=== PATIENT | female | born 1960 | race Caucasian/White ===

== ENCOUNTER 2018-10-25 19:14 | Emergency (ER) | payer MEDICARE, OTHER ==
[~2018-10-25] VITALS: Ht 160 cm; Wt 93.4 kg
[2018-10-25] MEDS ORDERED: TETANUS,DIPTH,PERTUSS P/F (BOOSTRIX) 0.5 ML VIAL IM ONE (19:45)
--- NOTE | 2018-10-25 19:46 | ED General ---
General Chief Complaint: Laceration Stated Complaint: LT THUMB LAC Source of Information: Patient Exam Limitations: No Limitations History of Present Illness Date Seen by Provider: Oct 25, 2018 Time Seen by Provider: 19:16 Initial Comments This 57 year old woman presents to the emergency room with an avulsion of her left thumb while using a kitchen slicer. She is on Plavix and has had persistent bleeding of the wound. She is past due for her tetanus immunization. Injury happened shortly before arrival. Allergies and Home Medications Allergies Coded Allergies: meloxicam (Verified Allergy, Unknown, 10/25/18) vancomycin (Verified Allergy, Unknown, 10/25/18) Patient Home Medication List Home Medication List Reviewed: Yes Review of Systems Review of Systems Constitutional: no symptoms reported EENTM: no symptoms reported Respiratory: no symptoms reported Cardiovascular: no symptoms reported Gastrointestinal: no symptoms reported Genitourinary: no symptoms reported : No Musculoskeletal: no symptoms reported Skin: see HPI Psychiatric/Neurological: No Symptoms Reported Hematologic/Lymphatic: No Symptoms Reported Past Kurnaei-Lhazpi-Pisxud Hx Past Med/Social Hx: Reviewed and Corrections made Patient Social History Recent Foreign Travel: No Contact w/Someone Who Travel: No Past Medical History Surgeries: Yes Abdominal (gastric bypass), Section, Coronary Stent, Hysterectomy, Orthopedic (back), Thyroidectomy Respiratory: No Cardiac: Yes Coronary Artery Disease Neurological: No : No Reproductive Disorders: No Genitourinary: No Gastrointestinal: No Musculoskeletal: Yes Chronic Back Pain Endocrine: No HEENT: No Cancer: No Psychosocial: No Integumentary: No Physical Exam Vital Signs Vital Signs - First Documented 10/25/18 19:20 Temp 97.3 Pulse 87 Resp 18 B/P (MAP) 179/82 (114) Pulse Ox 96 O2 Delivery Room Air Capillary Refill : Height, Weight, BMI Height: '" Weight: lbs. oz. kg; BMI Method: General Appearance: No Apparent Distress, WD/WN HEENT: Normal ENT Inspection Respiratory: Lungs Clear, Normal Breath Sounds, No Accessory Muscle Use Cardiovascular: Regular Rate, Rhythm, No Edema, No Murmur Gastrointestinal: Non Tender, Soft Extremity: Normal Capillary Refill, Other (1 cm skin avulsion on the distal left thumb with oozing of blood) Neurologic/Psychiatric: Alert, Oriented x3, No Motor/Sensory Deficits, Normal Mood/Affect Skin: Normal Color, Warm/Dry, Other (see above) Procedures/Interventions Wound Location: Upper Extremities Other Wound Location Distal left thumb Wound Length (cm): 1 Wound's Depth, Shape: superficial, flap Wound Explored: clean Irrigated w/ Saline (ccs): 500 Betadine Prep?: No Other Closure Supply: Wound Adhesive Progress Wound was cleansed with sterile saline and chlorhexidine. Tourniquet was then applied to the base of the thumb. Skin was dried thoroughly and flap was sealed down with wound adhesive. Patient tolerated the procedure well. Progress/Results/Core Measures Suspected Sepsis SIRS Temperature: Pulse: Respiratory Rate: Blood Pressure / Mean: Results/Orders My Orders Orders - JOVITA ZAMORA MD Dipht,Pertuss(Acell),Tet Adult (Boostrix (10/25/18 19:45) Medications Given in ED Current Medications Medications Dose Ordered Sig/Jorge Route Start Time Stop Time Status Last Admin Dose Admin Diphtheria/ Tetanus/Acell Pertussis 0.5 ml ONCE ONCE IM 10/25/18 19:45 10/25/18 19:46 DC 10/25/18 20:00 0.5 ML Vital Signs/I&O 10/25/18 19:20 Temp 97.3 Pulse 87 Resp 18 B/P (MAP) 179/82 (114) Pulse Ox 96 O2 Delivery Room Air Capillary Refill : Progress Note : Progress Note Wound was repaired with glue. Bleeding resolved. Tetanus immunization was administered. Departure Impression Primary Impression: Skin avulsion Disposition: 01 HOME, SELF-CARE Condition: Improved Departure-Patient Inst. Decision time for Depature: 19:40 Referrals: SELFBRITTA MD (PCP) Primary Care Physician Patient Instructions: SKIN AVULSION Add. Discharge Instructions: Keep the wound clean and dry except for normal handwashing and showering. Avoid submersion until the wound is healed. You may wish to cover with a Band- Aid or other dressing to prevent the glue from snagging. Avoid peeling the glue off. Allow glue to slough off naturally. You may trim loose edges with a small pair of scissors or fingernail clippers. Monitor for signs of infection such as increasing redness, increasing swelling, puslike drainage, or fever. Please return to care promptly if you notice these symptoms. All discharge instructions reviewed with patient and/or family. Voiced understanding. JOVITA ZAMORA MD Oct 25, 2018 19:46
[2018-10-25 20:05] VITALS: BP 179/82
== END 2018-10-25 20:05 | disposition home or self-care (01) ==
LOC: ER FS 19:16
DX: S61.012A Laceration without foreign body of left thumb without damage to nail, initial encounter (principal); I25.10 Atherosclerotic heart disease of native coronary artery without angina pectoris; Z88.1 Allergy status to other antibiotic agents; Z23 Encounter for immunization; Z88.8 Allergy status to other drugs, medicaments and biological substances; Z79.02 Long term (current) use of antithrombotics/antiplatelets; Z98.84 Bariatric surgery status; Z98.890 Other specified postprocedural states; Z95.5 Presence of coronary angioplasty implant and graft; Z90.710 Acquired absence of both cervix and uterus; Z90.89 Acquired absence of other organs; W27.4XXA Contact with kitchen utensil, initial encounter; Y92.000 Kitchen of unspecified non-institutional (private) residence as the place of occurrence of the external cause
CPT/HCPCS: 12041; 90471; 90715

== ENCOUNTER 2018-11-21 14:51 | Emergency (ER) | payer MEDICARE ==
[~2018-11-21] VITALS: Ht 160 cm; Wt 93.0 kg
--- NOTE | 2018-11-21 17:01 | ED Cough/URI ---
General Chief Complaint: Abdominal/GI Problems Stated Complaint: COUGH,DIARRHEA Nursing Triage Note: Has been sick for 3 weeks. Feels sleepy and is still having diarrhea and coughing. Sepsis Screen: No Definite Risk Source: patient, RN notes reviewed Exam Limitations: no limitations History of Present Illness Date Seen by Provider: Nov 21, 2018 Time Seen by Provider: 16:48 Initial Comments Patient presents c/ c/o continued cough and now diarrhea x 3 weeks. States she was seen in the walk in clinic and diagnosed c/ a cold and given prednisone and an antibiotic and hasn't improved @ all. States she is just worn out and just wants to sleep all day. Timing/Duration: week (3) Severity/Quality: moderate Prior Episodes/Possible Cause: frequent episodes Modifying Factors: Worse With Coughing Associated Symptoms: cough, other (diarrhea) Allergies and Home Medications Allergies Coded Allergies: meloxicam (Verified Allergy, Unknown, 10/25/18) pregabalin (Verified Allergy, Unknown, 11/21/18) vancomycin (Verified Allergy, Unknown, 10/25/18) Review of Systems Review of Systems Constitutional: see HPI, malaise Respiratory: see HPI, cough Gastrointestinal: see HPI, diarrhea All Other Systems Reviewed Negative Unless Noted: Yes (Negative excepted noted.) Past Xbntujf-Yatjth-Gktqsh Hx Patient Social History Type Used: Cigarettes 2nd Hand Smoke Exposure: No Recent Foreign Travel: No Contact w/Someone Who Travel: No Recent Infectious Disease Expo: No Recent Hopitalizations: No Seasonal Allergies Seasonal Allergies: No Past Medical History Surgeries: Yes Abdominal, Section, Coronary Stent, Hysterectomy, Orthopedic, Thyroidectomy Respiratory: No Cardiac: Yes Coronary Artery Disease Neurological: No Neuropathy 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 oz. 92.830479nw; BMI Method:Stated General Appearance: WD/WN, no apparent distress, obese HEENT: normal ENT inspection Neck: normal inspection Respiratory: lungs clear, normal breath sounds, no respiratory distress Gastrointestinal: non tender, soft Neurologic/Psychiatric: no motor/sensory deficits, alert, oriented x 3, depressed affect Skin: warm/dry; No rash Progress/Results/Core Measures Suspected Sepsis Recent Fever Within 48 Hours: No Infection Criteria Present: None New/Unexplained Altered Menta: No Sepsis Screen: No Definite Risk SIRS Temperature:98.7 Pulse: 68 Respiratory Rate: 20 Laboratory Tests 11/21/18 17:12: White Blood Count 10.0 Blood Pressure 158 /76 Mean: 103 Laboratory Tests 11/21/18 17:12: Creatinine 0.65, Platelet Count 240, Total Bilirubin 0.3 Results/Orders Lab Results Laboratory Tests Test 11/21/18 17:12 Range/Units White Blood Count 10.0 4.3-11.0 10^3/uL Red Blood Count 5.08 4.35-5.85 10^6/uL Hemoglobin 14.8 11.5-16.0 G/DL Hematocrit 45 35-52 % Mean Corpuscular Volume 89 80-99 FL Mean Corpuscular Hemoglobin 29 25-34 PG Mean Corpuscular Hemoglobin Concent 33 32-36 G/DL Red Cell Distribution Width 15.0 H 10.0-14.5 % Platelet Count 240 130-400 10^3/uL Mean Platelet Volume 11.0 H 7.4-10.4 FL Neutrophils (%) (Auto) 70 42-75 % Lymphocytes (%) (Auto) 21 12-44 % Monocytes (%) (Auto) 6 0-12 % Eosinophils (%) (Auto) 3 0-10 % Basophils (%) (Auto) 1 0-10 % Neutrophils # (Auto) 7.0 1.8-7.8 X 10^3 Lymphocytes # (Auto) 2.1 1.0-4.0 X 10^3 Monocytes # (Auto) 0.6 0.0-1.0 X 10^3 Eosinophils # (Auto) 0.3 0.0-0.3 10^3/uL Basophils # (Auto) 0.1 0.0-0.1 10^3/uL Sodium Level 142 135-145 MMOL/L Potassium Level 3.9 3.6-5.0 MMOL/L Chloride Level 101 98-107 MMOL/L Carbon Dioxide Level 30 21-32 MMOL/L Anion Gap 11 5-14 MMOL/L Blood Urea Nitrogen 6 L 7-18 MG/DL Creatinine 0.65 0.60-1.30 MG/DL Estimat Glomerular Filtration Rate > 60 BUN/Creatinine Ratio 9 Glucose Level 90 70-105 MG/DL Calcium Level 8.9 8.5-10.1 MG/DL Corrected Calcium 8.8 8.5-10.1 MG/DL Total Bilirubin 0.3 0.1-1.0 MG/DL Aspartate Amino Transf (AST/SGOT) 27 5-34 U/L Alanine Aminotransferase (ALT/SGPT) 22 0-55 U/L Alkaline Phosphatase 72 40-136 U/L Total Protein 6.7 6.4-8.2 GM/DL Albumin 4.1 3.2-4.5 GM/DL My Orders Orders - SO SIMON DO Cbc With Automated Diff (11/21/18 16:55) Comprehensive Metabolic Panel (11/21/18 16:55) Ua Culture If Indicated (11/21/18 16:55) Chest Pa/Lat (2 View) (11/21/18 16:55) Occult Blood Stool (11/21/18 16:57) Stool Culture (11/21/18 16:57) Fecal Wbc (11/21/18 16:57) C Difficile Ag + Toxin A/B. (11/21/18 16:57) Metronidazole Tablet (Flagyl Tablet) (11/21/18 18:00) Methylprednisolone Acetate Inj (Depo-Med (11/21/18 18:00) Vital Signs/I&O 11/21/18 16:00 Temp 98.7 Pulse 68 Resp 20 B/P (MAP) 158/76 (103) Pulse Ox 91 Capillary Refill : Less Than 3 Seconds Blood Pressure Mean: 103 Diagnostic Imaging Diagonstic Imaging: Xray Plain Films/CT/US/NM/MRI: chest (cardiomegaly; nothing acute) Departure Impression Primary Impression: Diarrhea Additional Impression: Bronchitis Disposition: 01 HOME, SELF-CARE Condition: Stable Departure-Patient Inst. Decision time for Depature: 17:51 Referrals: BRITTA SUAREZ MD (PCP/Family) Primary Care Physician Patient Instructions: Diarrhea in Adolescents and Adults, Acute Bronchitis Scripts Metronidazole (Flagyl) 500 Mg Tablet 500 MG PO BID for 7 Days, #14 TAB 0 Refills Prov: SO SIMON DO 11/21/18 SO SIMON DO Nov 21, 2018 17:01
--- NOTE | 2018-11-21 17:17 | Diagnostic Imaging Report ---
INDICATION: Cough for three weeks. TIME OF EXAM: 04:44 p.m. COMPARISON: No prior studies available for comparison. FINDINGS: The heart is enlarged. There is a spinal cord paddle stimulator overlying the mid thoracic spine. Lungs are clear. There is no infiltrate or failure. No effusion or pneumothorax is seen. IMPRESSION: Cardiomegaly. No acute cardiopulmonary process is detected. Dictated by: Dictated on workstation # [id number]
[2018-11-21 17:21] LABS: HEMATOCRIT 45 % (35-52); HEMOGLOBIN 14.8 G/DL (11.5-16.0); LYMPHOCYTES % (AUTO) 21 % (12-44); MEAN CORPUSCULAR HEMOGLOBIN 29 PG (25-34); MEAN CORPUSCULAR HGB CONC 33 G/DL (32-36); MEAN CORPUSCULAR VOLUME 89 FL (80-99); MONOCYTES % (AUTO) 6 % (0-12); NEUTROPHILS % (AUTO) 70 % (42-75); PLATELET COUNT 240 10^3/uL (130-400)
[2018-11-21 17:22] LABS: BASOPHILS # (AUTO) 0.1 10^3/uL (0.0-0.1); BASOPHILS % (AUTO) 1 % (0-10); EOSINOPHILS # (AUTO) 0.3 10^3/uL (0.0-0.3); EOSINOPHILS % (AUTO) 3 % (0-10); LYMPHOCYTES # (AUTO) 2.1 X 10^3 (1.0-4.0); MONOCYTES # (AUTO) 0.6 X 10^3 (0.0-1.0)
[2018-11-21 17:40] LABS: BUN/CREATININE RATIO 9; CARBON DIOXIDE 30 MMOL/L (21-32); CHLORIDE 101 MMOL/L (98-107); CREATININE SERUM 0.65 MG/DL (0.60-1.30); GFR ESTIMATED > 60; POTASSIUM 3.9 MMOL/L (3.6-5.0); SODIUM 142 MMOL/L (135-145)
[2018-11-21 17:41] LABS: ALANINE AMINOTRANSFERASE 22 U/L (0-55); ALBUMIN 4.1 GM/DL (3.2-4.5); ALKALINE PHOSPHATASE 72 U/L (40-136); BILIRUBIN,TOTAL 0.3 MG/DL (0.1-1.0); CALCIUM 8.9 MG/DL (8.5-10.1); GLUCOSE 90 MG/DL (70-105); TOTAL PROTEIN 6.7 GM/DL (6.4-8.2)
[2018-11-21] MEDS ORDERED: METR500T PO (17:52)
[2018-11-21] MEDS ORDERED: metroNIDAZOLE 500 MG (FLAGYL) TAB PO ONE (18:00)
[2018-11-21] MEDS ORDERED: methylPREDNISolone 80 MG/ML (DEPO MEDROL) VIAL IM ONE (18:00)
[2018-11-21] MEDS ORDERED: metroNIDAZOLE 500 MG (FLAGYL) TAB ONE (18:06)
[2018-11-21] MEDS ORDERED: methylPREDNISolone 80 MG/ML (DEPO MEDROL) VIAL ONE (18:06)
[2018-11-21 18:19] VITALS: BP 157/75
== END 2018-11-21 18:18 | disposition home or self-care (01) ==
LOC: EDUNIT# 14:51 → ER FS 14:53
DX: R19.7 Diarrhea, unspecified (principal); J40 Bronchitis, not specified as acute or chronic; I25.10 Atherosclerotic heart disease of native coronary artery without angina pectoris; G62.9 Polyneuropathy, unspecified; E03.9 Hypothyroidism, unspecified; Z88.1 Allergy status to other antibiotic agents; Z88.8 Allergy status to other drugs, medicaments and biological substances; Z98.890 Other specified postprocedural states; Z95.5 Presence of coronary angioplasty implant and graft; Z90.710 Acquired absence of both cervix and uterus; Z90.89 Acquired absence of other organs
CPT/HCPCS: 36415; 71046; 80053; 85025

== ENCOUNTER → 2019-02-17 | Outpatient (CLI) | payer MEDICARE ==
[~2019-02-17] MED LIST: HOLD METFORMIN - RECEIVED CONTRAST 20 ML VIAL IV SCH; IOHEXOL 350 MG/ML 100 ML (OMNIPAQUE 350) VIAL IV ONE; METR500T PO; NS 100 ML (IVPB) BAG IV ONE; RT-ALBUTEROL SULF 2.5 MG/3 ML PRE-MIX VIAL INH ONE
[2019-02-17 09:47] LABS: BUN/CREATININE RATIO 17; CREATININE SERUM 0.71 MG/DL (0.60-1.30); GFR ESTIMATED > 60
--- NOTE | 2019-02-17 10:18 | NUR ---
ATTEMPTED TO GET ABG X2. PATIENT WOULD NOT HOLD STILL AND KEPT MOVING. PATIENT THEN REFUSED TO HAVE ABG DONE.
--- NOTE | 2019-02-17 10:59 | Diagnostic Imaging Report ---
PROCEDURE: CT chest with contrast only. TECHNIQUE: Multiple contiguous axial images were obtained through the chest after administration of intravenous contrast. Auto Exposure Controls were utilized during the CT exam to meet ALARA standards for radiation dose reduction. INDICATION: Tobacco use, cough and COPD in patient with allergic rhinitis. FINDINGS: There is mild diffuse centrilobular emphysema. No consolidation or noncalcified mass is identified. There is no significant pleural fluid, although there is mild pericardial effusion. Note is made of an approximately 0.6 cm subpleural density in the lateral aspect of the left lower lobe. This has a discoid appearance and may represent scar. Spinal stimulator device is present. There has been apparent fundoplication of the stomach. IMPRESSION: Subcentimeter discoid density in the left lower lobe may represent scarring. If older studies are available, comparison would be useful. Otherwise short-term CT followup could be performed in 6 months to document ongoing stability. There is small amount of pericardial fluid and surgical findings are present in the region of the stomach. Dictated by: Dictated on workstation # [id number]
== END ==
LOC: RAD 09:07
PROVIDERS: ATTEND Nurse Practitioner Family
DX: J98.4 Other disorders of lung (principal); J30.9 Allergic rhinitis, unspecified; J44.9 Chronic obstructive pulmonary disease, unspecified; J30.2 Other seasonal allergic rhinitis; Z72.0 Tobacco use
CPT/HCPCS: 36415; 71260; 82565; 84520; 94060; 94640; 94726; 94729

== ENCOUNTER 2019-08-11 16:23 | Emergency (ER) | payer MEDICARE, OTHER ==
[~2019-08-11] VITALS: Ht 160 cm; Wt 103.1 kg
[~2019-08-11 16:23] MED LIST changes: -HOLD METFORMIN - RECEIVED CONTRAST 20 ML VIAL IV SCH; -IOHEXOL 350 MG/ML 100 ML (OMNIPAQUE 350) VIAL IV ONE; -NS 100 ML (IVPB) BAG IV ONE; -RT-ALBUTEROL SULF 2.5 MG/3 ML PRE-MIX VIAL INH ONE
--- NOTE | 2019-08-11 17:01 | ED Cardiac General ---
History of Present Illness General Chief Complaint: Cardiac/General Problems Stated Complaint: FLUCTUATING HEART RATE AND OXYGEN LEVELS History of Present Illness Date Seen by Provider: Aug 11, 2019 Time Seen by Provider: 16:40 Initial Comments Patient recently for upper respiratory infection was placed on a Z-Manjit double days ago and since that time as had fluctuating oxygen levels and heart levels with pulse down into the 30s has been evaluated in the past most recently with a heart stress test and evaluation of her pacemaker and she was told that her heart was fine. Denies any significant chest pain does note some coughing purulent sputum mild shortness of breath with exertion. Timing/Duration: 1 week Location: central Prior CP/Workup: heart attack, thallium scan Modifying Factors: improves with movement Associated Systoms: Chest Pain, Cough; No Diaphoresis, No Fever/Chills, No Head aches, No Malaise, No Nausea/Vomiting, No Syncope; Weakness Allergies and Home Medications Allergies Coded Allergies: meloxicam (Verified Allergy, Unknown, 10/25/18) pregabalin (Verified Allergy, Unknown, 11/21/18) vancomycin (Verified Allergy, Unknown, 10/25/18) Home Medications Metronidazole 500 Mg Tablet, 500 MG PO BID Prescribed by: SO SIMON on 11/21/18 [id number] Patient Home Medication List Home Medication List Reviewed: Yes Review of Systems Review of Systems Constitutional: No chills, No fever EENTM: No Blurred Vision, No Double Vision, No Ear Pain; Nose Congestion; No Throat Pain Respiratory: Cough, SOA With Exertion; Denies Wheezing Cardiovascular: Chest Pain; Denies Irregular Heart Rate, Denies Palpitations Gastrointestinal: Denies Abdominal Pain, Denies Nausea, Denies Vomiting Genitourinary: Denies Frequency, Denies Hematuria Musculoskeletal: No muscle pain, No muscle weakness Skin: No lesions, No rash Psychiatric/Neurological: Denies Headache, Denies Numbness, Denies Tingling Past Pedlmeb-Ioymtw-Bagdtp Hx Past Med/Social Hx: Reviewed Nursing Past Med/Soc Hx Patient Social History Type Used: Cigarettes 2nd Hand Smoke Exposure: No Recent Foreign Travel: No Contact w/Someone Who Travel: No Recent Hopitalizations: No Seasonal Allergies Seasonal Allergies: No Past Medical History Surgeries: Yes Abdominal, Section, Coronary Stent, Hysterectomy, Orthopedic, Thyroidectomy Respiratory: No Cardiac: Yes Coronary Artery Disease Neurological: No Neuropathy Reproductive Disorders: No [employer] History: Hysterectomy Genitourinary: No Gastrointestinal: No Musculoskeletal: Yes Chronic Back Pain Endocrine: No Hyperthyroidism HEENT: No Cancer: No Psychosocial: No Integumentary: No Blood Disorders: No Physical Exam Vital Signs Vital Signs - First Documented 08/11/19 16:30 Temp 36.5 Pulse 43 Resp 12 B/P (MAP) 172/69 (103) Pulse Ox 95 O2 Delivery Room Air Capillary Refill : Height, Weight, BMI Height: 5'3.00" Weight: 205lbs. oz. 92.267982lj; BMI Method:Stated General Appearance: WD/WN, Mild Distress HEENT: TMs Normal, Pharynx Normal Neck: Full Range of Motion, Non Tender Respiratory: No Respiratory Distress; Rhonci, Wheezing Cardiovascular: No Murmur, Bradycardia Gastrointestinal: Normal Bowel Sounds, Non Tender, Soft Extremity: Non Tender, No Calf Tenderness Neurologic/Psychiatric: Alert, Oriented x3 Skin: Normal Color, Warm/Dry Progress/Results/Core Measures Results/Orders Lab Results Laboratory Tests Test 08/11/19 16:45 Range/Units White Blood Count 9.2 4.3-11.0 10^3/uL Red Blood Count 4.66 4.35-5.85 10^6/uL Hemoglobin 13.5 11.5-16.0 G/DL Hematocrit 41 35-52 % Mean Corpuscular Volume 89 80-99 FL Mean Corpuscular Hemoglobin 29 25-34 PG Mean Corpuscular Hemoglobin Concent 33 32-36 G/DL Red Cell Distribution Width 13.8 10.0-14.5 % Platelet Count 205 130-400 10^3/uL Mean Platelet Volume 11.3 H 7.4-10.4 FL Neutrophils (%) (Auto) 64 42-75 % Lymphocytes (%) (Auto) 27 12-44 % Monocytes (%) (Auto) 6 0-12 % Eosinophils (%) (Auto) 2 0-10 % Basophils (%) (Auto) 1 0-10 % Neutrophils # (Auto) 5.9 1.8-7.8 X 10^3 Lymphocytes # (Auto) 2.5 1.0-4.0 X 10^3 Monocytes # (Auto) 0.5 0.0-1.0 X 10^3 Eosinophils # (Auto) 0.2 0.0-0.3 10^3/uL Basophils # (Auto) 0.1 0.0-0.1 10^3/uL Neutrophils % (Manual) 68 % Lymphocytes % (Manual) 27 % Monocytes % (Manual) 2 % Eosinophils % (Manual) 2 % Basophils % (Manual) 1 % Band Neutrophils 0 % Blood Morphology Comment NORMAL Sodium Level 139 135-145 MMOL/L Potassium Level 4.0 3.6-5.0 MMOL/L Chloride Level 101 98-107 MMOL/L Carbon Dioxide Level 27 21-32 MMOL/L Anion Gap 11 5-14 MMOL/L Blood Urea Nitrogen 9 7-18 MG/DL Creatinine 0.65 0.60-1.30 MG/DL Estimat Glomerular Filtration Rate > 60 BUN/Creatinine Ratio 14 Glucose Level 119 H 70-105 MG/DL Calcium Level 9.2 8.5-10.1 MG/DL Corrected Calcium 9.1 8.5-10.1 MG/DL Magnesium Level 1.4 L 1.6-2.4 MG/DL Total Bilirubin 0.3 0.1-1.0 MG/DL Aspartate Amino Transf (AST/SGOT) 14 5-34 U/L Alanine Aminotransferase (ALT/SGPT) 11 0-55 U/L Alkaline Phosphatase 76 40-136 U/L Troponin I < 0.30 <0.30 NG/ML Pro-B-Type Natriuretic Peptide 181.2 H <75.0 PG/ML Total Protein 6.4 6.4-8.2 GM/DL Albumin 4.1 3.2-4.5 GM/DL Micro Results Microbiology 08/11/19 Influenza Types A,B Antigen (MARISOL) - Final, Complete My Orders Orders - SPIKE LARSON JR, MD Cbc And Manual Diff (08/11/19 16:54) Comprehensive Metabolic Panel (08/11/19 16:54) Troponin I Fs (08/11/19 16:54) Probnp Fs (08/11/19 16:54) Ekg Tracing (08/11/19 16:54) Chest 1 View Ap/Pa Only (08/11/19 16:54) Influenza A And B Antigens (08/11/19 16:54) Magnesium (08/11/19 17:10) Vital Signs/I&O 08/11/19 16:30 Temp 36.5 Pulse 43 Resp 12 B/P (MAP) 172/69 (103) Pulse Ox 95 O2 Delivery Room Air Progress Progress Note : Time: 17:41 Progress Note Discussed with patient about low heart rate tolerated very well even down into the low 30s upper 20s denies being symptomatic refuses to go to the hospital under any circumstances at this point did talk about the risks of that but also talked about stopping her Zithromax she currently only takes a diabetes medicine and lisinopril she's not taking any carvedilol at this time and no other medications that would affect her heart rate. I do feel like these azithromycin combination with the low magnesium probably causing the problem we'll go ahead and have her take a vitamin with mineral supplements stop the azithromycin and see her doctor tomorrow return here if any problems at all. She understands and accepts the risks. Initial ECG Impression Date: Aug 11, 2019 Initial ECG Impression Time: 16:36 Initial ECG Rate: 53 Initial ECG Rhythm: Normal Sinus Comment Right bundle-branch block Departure Impression Primary Impression: Bradycardia Disposition: 01 HOME, SELF-CARE Condition: Stable Departure-Patient Inst. Referrals: SELFBRITTA MD (PCP/Family) Primary Care Physician Patient Instructions: Bradycardia (DC) Work/School Note: Work Release Form Date Seen in the Emergency Department: Aug 11, 2019 Return to Work: Aug 15, 2019 Restrictions: No Restrictions SPIKE LARSON JR, MD Aug 11, 2019 17:01
[2019-08-11 17:03] LABS: HEMATOCRIT 41 % (35-52); HEMOGLOBIN 13.5 G/DL (11.5-16.0); MEAN CORPUSCULAR HEMOGLOBIN 29 PG (25-34); MEAN CORPUSCULAR HGB CONC 33 G/DL (32-36); MEAN CORPUSCULAR VOLUME 89 FL (80-99); PLATELET COUNT 205 10^3/uL (130-400); RED CELL DISTRIBUTION WIDTH 13.8 % (10.0-14.5); WHITE BLOOD COUNT 9.2 10^3/uL (4.3-11.0)
[2019-08-11 17:04] LABS: BASOPHILS # (AUTO) 0.1 10^3/uL (0.0-0.1); BASOPHILS % (AUTO) 1 % (0-10); EOSINOPHILS # (AUTO) 0.2 10^3/uL (0.0-0.3); EOSINOPHILS % (AUTO) 2 % (0-10); LYMPHOCYTES # (AUTO) 2.5 X 10^3 (1.0-4.0); LYMPHOCYTES % (AUTO) 27 % (12-44); MEAN PLATELET VOLUME 11.3 FL (7.4-10.4); MONOCYTES # (AUTO) 0.5 X 10^3 (0.0-1.0); MONOCYTES % (AUTO) 6 % (0-12); NEUTROPHILS # (AUTO) 5.9 X 10^3 (1.8-7.8); NEUTROPHILS % (AUTO) 64 % (42-75)
--- NOTE | 2019-08-11 17:25 | Diagnostic Imaging Report ---
CLINICAL INDICATION: Patient complains of fluctuating heart rate and oxygen levels. Patient have a shortness of breath, chest pressure, headaches and pain down left arm. EXAM: Portable chest x-ray upright view. COMPARISONS: Chest x-ray dated 11/21/2018. FINDINGS: There is stable cardiomegaly with no significant pulmonary vascular congestion. There is no interval lung infiltrate. Lungs are clear. There is no pleural effusion or pneumothorax. There are hypertrophic spurs involving the thoracic spine. Neurostimulator electrode is again seen. IMPRESSION: 1: Stable chest x-ray exam with no interval radiographic evidence of acute cardiopulmonary process. 2: Stable cardiomegaly with no significant pulmonary vascular congestion. Dictated by: Dictated on workstation # [id number]
[2019-08-11 17:27] LABS: BAND NEUTROPHILS 0 %; BASOPHILS % (MANUAL) 1 %; EOSINOPHILS % (MANUAL) 2 %; LYMPHOCYTES % (MANUAL) 27 %; MONOCYTES % (MANUAL) 2 %; NEUTROPHILS % (MANUAL) 68 %; RBC MORPH NORMAL
[2019-08-11 17:31] LABS: ALANINE AMINOTRANSFERASE 11 U/L (0-55); ALKALINE PHOSPHATASE 76 U/L (40-136); BILIRUBIN,TOTAL 0.3 MG/DL (0.1-1.0); BUN/CREATININE RATIO 14; CALCIUM 9.2 MG/DL (8.5-10.1); CARBON DIOXIDE 27 MMOL/L (21-32); CHLORIDE 101 MMOL/L (98-107); CREATININE SERUM 0.65 MG/DL (0.60-1.30); GFR ESTIMATED > 60; GLUCOSE 119 MG/DL (70-105); SODIUM 139 MMOL/L (135-145)
[2019-08-11 17:32] LABS: ALBUMIN 4.1 GM/DL (3.2-4.5); TOTAL PROTEIN 6.4 GM/DL (6.4-8.2)
[2019-08-11 17:50] VITALS: BP 145/77
== END 2019-08-11 17:50 | disposition home or self-care (01) ==
LOC: EDUNIT# 16:23 → ER FS 16:26
DX: R00.1 Bradycardia, unspecified (principal); I25.10 Atherosclerotic heart disease of native coronary artery without angina pectoris; G62.9 Polyneuropathy, unspecified; E05.90 Thyrotoxicosis, unspecified without thyrotoxic crisis or storm; Z88.1 Allergy status to other antibiotic agents; Z88.8 Allergy status to other drugs, medicaments and biological substances; Z90.710 Acquired absence of both cervix and uterus; Z95.5 Presence of coronary angioplasty implant and graft
CPT/HCPCS: 36415; 71045; 80053; 83735; 83880; 84484; 85007; 85027; 87804; 93005

== ENCOUNTER 2020-01-12 05:32 | Outpatient (CLI) | payer MEDICARE ==
[~2020-01-12] VITALS: Ht 160 cm; Wt 99.9 kg
[2020-01-12 09:03] VITALS: BP 145/77
[2020-01-12] MEDS ORDERED: LISI40TA PO (11:05)
[2020-01-12] MEDS ORDERED: ATOR80TA76 PO (11:05)
[2020-01-12] MEDS ORDERED: LEVO25TA5 PO (11:05)
[2020-01-12] MEDS ORDERED: PREG75CA PO (11:05)
[2020-01-12] MEDS ORDERED: CLOP75TA28 PO (11:05)
[2020-01-12] MEDS ORDERED: FLUT1DIS26 IH (11:05)
[2020-01-12] MEDS ORDERED: LEVO200T6 PO (11:05)
[2020-01-12] MEDS ORDERED: METF-398 PO (11:05)
[2020-01-12] MEDS ORDERED: AMLO5TAB9 PO (11:05)
[2020-01-12] MEDS ORDERED: PANT40TA3 PO (11:05)
[2020-01-12] MEDS ORDERED: FURO20TA4 PO (11:52)
[2020-01-12] MEDS ORDERED: ZOLP10TA PO (11:52)
[2020-01-16] MEDS ORDERED: HYDR-83 PO (08:44)
== END 2020-01-12 12:04 | disposition home or self-care (01) ==
LOC: PREOP 05:32
PROVIDERS: ATTEND Podiatrist Foot & Ankle Surgery
DX: Z01.818 Encounter for other preprocedural examination (principal); Z11.59 Encounter for screening for other viral diseases; Z11.2 Encounter for screening for other bacterial diseases
CPT/HCPCS: 87081; U0002; 87635

== ENCOUNTER 2020-01-12 08:46 | Outpatient (RCR) | payer MEDICARE, OTHER ==
[2020-01-12] MEDS ORDERED: PANT40TA3 PO (11:05)
[2020-01-12] MEDS ORDERED: AMLO5TAB9 PO (11:05)
[2020-01-12] MEDS ORDERED: FLUT1DIS26 IH (11:05)
[2020-01-12] MEDS ORDERED: METF-398 PO (11:05)
[2020-01-12] MEDS ORDERED: LISI40TA PO (11:05)
[2020-01-12] MEDS ORDERED: ATOR80TA76 PO (11:05)
[2020-01-12] MEDS ORDERED: LEVO25TA5 PO (11:05)
[2020-01-12] MEDS ORDERED: LEVO200T6 PO (11:05)
[2020-01-12] MEDS ORDERED: CLOP75TA28 PO (11:05)
[2020-01-12] MEDS ORDERED: PREG75CA PO (11:05)
[2020-01-12] MEDS ORDERED: ZOLP10TA PO (11:52)
[2020-01-12] MEDS ORDERED: FURO20TA4 PO (11:52)
== END 2020-01-12 12:03 | disposition home or self-care (01) ==
LOC: PREOP 08:46
PROVIDERS: ATTEND Podiatrist Foot & Ankle Surgery
DX: Z01.818 Encounter for other preprocedural examination (principal)

== ENCOUNTER 2020-01-16 06:02 | Day surgery (SDC) | payer MEDICARE, OTHER ==
[2020-01-16] VITALS (8 sets, daily range): BP systolic 125–150; BP diastolic 77–101
[~2020-01-16] VITALS: Ht 160 cm; Wt 99.9 kg
[~2020-01-16 06:02] MED LIST changes: +AMLO5TAB9 PO; +ATOR80TA76 PO; +CLOP75TA28 PO; +FLUT1DIS26 IH; +FURO20TA4 PO; +LEVO200T6 PO; +LEVO25TA5 PO; +LISI40TA PO; +METF-398 PO; +PANT40TA3 PO; +PREG75CA PO; +ZOLP10TA PO
[2020-01-16] MEDS ORDERED: LACTATED RINGERS 1,000 ML IV PRN (06:03)
--- OUTSIDE RECORDS SUMMARY | 2020-01-16 06:10 | XMS REPORT | Continuity of Care Document ---
Author Organization Unknown Address Unknown Phone Unavailable Allergies Active Description Code Type Severity Reaction Onset Reported/Identified Relationship to Patient Clinical Status Yes meloxicam [id number] Drug Allergy Unknown N/A 10/25/2018 Yes vancomycin [id number] Drug Allerg y Unknown N/A 10/25/2018 Yes pregabalin [id number] Drug Allerg y Unknown N/A 11/21/2018 Medications There is no data. Problems Date Dx Coded Attending Type Code Diagnosis Diagnosed By 10/25/2018 JOVITA ZAMORA MD, Ot I25.10 ATHSCL HEART DISEASE OF [place] CORONARY 10/25/2018 JOVITA ZAMORA MD, Ot S61.012A LACERATION W/O FB OF LEFT THUMB W/O JESSICA 10/25/2018 JOVITA ZAMORA MD, Ot W27.4XXA CONTACT WITH KITCHEN UTENSIL, INITIAL EN 10/25/2018 JOVITA ZAMORA MD, Ot Y92.000 KITCHEN OF [facility] NON-INSTITUT (PRIVATE) R 10/25/2018 JOVITA ZAMORA MD, Ot Z23 ENCOUNTER FOR IMMUNIZATION 10/25/2018 JOVITA ZAMORA MD, Ot Z79.02 FPC (CURRENT) USE OF ANTITHROMBOTI 10/25/2018 JOVITA ZAMORA MD, Ot Z88.1 ALLERGY STATUS TO OTHER ANTIBIOTIC AGENT 10/25/2018 JOVITA ZAMORA MD, Ot Z88.8 ALLERGY STATUS TO OTH DRUG/MEDS/BIOL SUB 10/25/2018 JOVITA ZAMORA MD, Ot Z90.710 ACQUIRED ABSENCE OF BOTH CERVIX AND UTER 10/25/2018 JOVITA ZAMORA MD, Ot Z90.89 ACQUIRED ABSENCE OF OTHER ORGANS 10/25/2018 JOVITA ZAMORA MD, Ot Z95.5 PRESENCE OF CORONARY ANGIOPLASTY IMPLANT 10/25/2018 JOVITA ZAMORA MD, Ot Z98.84 BARIATRIC SURGERY STATUS 10/25/2018 JOVITA ZAMORA MD, Ot Z98.890 OTHER SPECIFIED POSTPROCEDURAL STATES 10/29/2018 JOVITA ZAMORA MD, Ot I25.10 ATHSCL HEART DISEASE OF [place] CORONARY 10/29/2018 JOVITA ZAMORA MD, Ot S61.012A LACERATION W/O FB OF LEFT THUMB W/O JESSICA 10/29/2018 JOVITA ZAMORA MD, Ot W27.4XXA CONTACT WITH KITCHEN UTENSIL, INITIAL EN 10/29/2018 JOVITA ZAMORA MD, Ot Y92.000 KITCHEN OF [facility] NON-INSTITUT (PRIVATE) R 10/29/2018 JOVITA ZAMORA MD, Ot Z23 ENCOUNTER FOR IMMUNIZATION 10/29/2018 JOVITA ZAMORA MD, Ot Z79.02 FPC (CURRENT) USE OF ANTITHROMBOTI 10/29/2018 JOVITA ZAMORA MD, Ot Z88.1 ALLERGY STATUS TO OTHER ANTIBIOTIC AGENT 10/29/2018 JOVITA ZAMORA MD, Ot Z88.8 ALLERGY STATUS TO OTH DRUG/MEDS/BIOL SUB 10/29/2018 JOVITA ZAMORA MD, Ot Z90.710 ACQUIRED ABSENCE OF BOTH CERVIX AND UTER 10/29/2018 JOVITA ZAMORA MD, Ot Z90.89 ACQUIRED ABSENCE OF OTHER ORGANS 10/29/2018 JOVITA ZAMORA MD, Ot Z95.5 PRESENCE OF CORONARY ANGIOPLASTY IMPLANT 10/29/2018 JOVITA ZAMORA MD, Ot Z98.84 BARIATRIC SURGERY STATUS 10/29/2018 JOVITA ZAMORA MD, Ot Z98.890 OTHER SPECIFIED POSTPROCEDURAL STATES 11/21/2018 SO SIMON DO, Ot E03.9 HYPOTHYROIDISM, UNSPECIFIED 11/21/2018 SO SIMON DO, Ot G62.9 POLYNEUROPATHY, UNSPECIFIED 11/21/2018 SO SIMON DO, Ot I25.10 ATHSCL HEART DISEASE OF [place] CORONARY 11/21/2018 SO SIMON DO, Ot J4 0 BRONCHITIS, NOT SPECIFIED ACUTE OR CH 11/21/2018 SO SIMON DO, Ot R0 5 COUGH 11/21/2018 SO SIMON DO Ot R19.7 DIARRHEA, UNSPECIFIED 11/21/2018 SO SIMON DO Ot Z88.1 ALLERGY STATUS TO OTHER ANTIBIOTIC AGENT 11/21/2018 SO SIMON DO Ot Z88.8 ALLERGY STATUS TO OTH DRUG/MEDS/BIOL SUB 11/21/2018 SO SIMON DO Ot Z90.710 ACQUIRED ABSENCE OF BOTH CERVIX AND UTER 11/21/2018 SO SIMON DO Ot Z90.89 ACQUIRED ABSENCE OF OTHER ORGANS 11/21/2018 SO SIMON DO Ot Z95.5 PRESENCE OF CORONARY ANGIOPLASTY IMPLANT 11/21/2018 SO SIMON DO Ot Z98.890 OTHER SPECIFIED POSTPROCEDURAL STATES 11/23/2018 SO SIMON DO Ot E03.9 HYPOTHYROIDISM, UNSPECIFIED 11/23/2018 SO SIMON DO Ot G62.9 POLYNEUROPATHY, UNSPECIFIED 11/23/2018 SO SIMON DO Ot I25.10 ATHSCL HEART DISEASE OF [place] CORONARY 11/23/2018 SO SIMON DO Ot J4 0 BRONCHITIS, NOT SPECIFIED ACUTE OR CH 11/23/2018 SO SIMON DO Ot R0 5 COUGH 11/23/2018 SO SIMON DO Ot R19.7 DIARRHEA, UNSPECIFIED 11/23/2018 SO SIMON DO Ot Z88.1 ALLERGY STATUS TO OTHER ANTIBIOTIC AGENT 11/23/2018 SO SIMON DO Ot Z88.8 ALLERGY STATUS TO OTH DRUG/MEDS/BIOL SUB 11/23/2018 SO SIMON DO Ot Z90.710 ACQUIRED ABSENCE OF BOTH CERVIX AND UTER 11/23/2018 SO SIMON DO Ot Z90.89 ACQUIRED ABSENCE OF OTHER ORGANS 11/23/2018 SO SIMON DO Ot Z95.5 PRESENCE OF CORONARY ANGIOPLASTY IMPLANT 11/23/2018 SO SIMON DO Ot Z98.890 OTHER SPECIFIED POSTPROCEDURAL STATES 11/27/2018 SO SIMON DO Ot E03.9 HYPOTHYROIDISM, UNSPECIFIED 11/27/2018 SO SIMON DO Ot G62.9 POLYNEUROPATHY, UNSPECIFIED 11/27/2018 SO SIMON DO Ot I25.10 ATHSCL HEART DISEASE OF [place] CORONARY 11/27/2018 SO SIMON DO Ot J4 0 BRONCHITIS, NOT SPECIFIED ACUTE OR CH 11/27/2018 SO SIMON DO Ot R0 5 COUGH 11/27/2018 SO SIMON DO Ot R19.7 DIARRHEA, UNSPECIFIED 11/27/2018 SO SIMON DO Ot Z88.1 ALLERGY STATUS TO OTHER ANTIBIOTIC AGENT 11/27/2018 SO SIMON DO Ot Z88.8 ALLERGY STATUS TO OTH DRUG/MEDS/BIOL SUB 11/27/2018 SO SIMON DO Ot Z90.710 ACQUIRED ABSENCE OF BOTH CERVIX AND UTER 11/27/2018 SO SIMON DO Ot Z90.89 ACQUIRED ABSENCE OF OTHER ORGANS 11/27/2018 SO SIMON DO Ot Z95.5 PRESENCE OF CORONARY ANGIOPLASTY IMPLANT 11/27/2018 SO SIMON DO Ot Z98.890 OTHER SPECIFIED POSTPROCEDURAL STATES 02/21/2019 ROGELIO SWENSON APRN Ot J30.2 OTHER SEASONAL ALLERGIC RHINITIS 02/21/2019 ROGELIO SWENSON APRN Ot J30.9 ALLERGIC RHINITIS, UNSPECIFIED 02/21/2019 ROGELIO SWENSON TELEGRAPHIC TYPEWRITER OPERATOR CHIEF Ot J44.9 CHRONIC OBSTRUCTIVE PULMONARY DISEASE, U 02/21/2019 ROGELIO SWENSON APRN Ot J98.4 OTHER DISORDERS OF LUNG 02/21/2019 ROGELIO SWENSON APRN Ot Z72.0 TOBACCO USE 08/11/2019 SPIKE LARSON MD Ot E05.90 THYROTOXICOSIS, UNSP WITHOUT THYROTOXIC 08/11/2019 SPIKE LARSON MD Ot G62.9 POLYNEUROPATHY, UNSPECIFIED 08/11/2019 SPIKE LARSON MD Ot I25.10 ATHSCL HEART DISEASE OF [place] CORONARY 08/11/2019 SPIKE LARSON MD Ot R00.1 BRADYCARDIA, UNSPECIFIED 08/11/2019 SPIKE LARSON MD Ot Z88.1 ALLERGY STATUS TO OTHER ANTIBIOTIC AGENT 08/11/2019 SPIKE LARSON MD Ot Z88.8 ALLERGY STATUS TO OTH DRUG/MEDS/BIOL SUB 08/11/2019 SPIKE LARSON MD Ot Z90.710 ACQUIRED ABSENCE OF BOTH CERVIX AND UTER 08/11/2019 SPIKE LARSON MD Ot Z95.5 PRESENCE OF CORONARY ANGIOPLASTY IMPLANT 08/11/2019 ROGELIO SWENSON APRN Ot J30.2 OTHER SEASONAL ALLERGIC RHINITIS 08/11/2019 ROGELIO SWENSON TELEGRAPHIC TYPEWRITER OPERATOR CHIEF Ot J30.9 ALLERGIC RHINITIS, UNSPECIFIED 08/11/2019 ROGELIO SWENSON TELEGRAPHIC TYPEWRITER OPERATOR CHIEF Ot J44.9 CHRONIC OBSTRUCTIVE PULMONARY DISEASE, U 08/11/2019 ROGELIO SWENSON TELEGRAPHIC TYPEWRITER OPERATOR CHIEF Ot J98.4 OTHER DISORDERS OF LUNG 08/11/2019 ROGELIO SWENSON TELEGRAPHIC TYPEWRITER OPERATOR CHIEF Ot Z72.0 TOBACCO USE 09/28/2019 ROGELIO SWENSON TELEGRAPHIC TYPEWRITER OPERATOR CHIEF Ot J30.2 OTHER SEASONAL ALLERGIC RHINITIS 09/28/2019 ROGELIO SWENSON TELEGRAPHIC TYPEWRITER OPERATOR CHIEF Ot J30.9 ALLERGIC RHINITIS, UNSPECIFIED 09/28/2019 ROGELIO SWENSON TELEGRAPHIC TYPEWRITER OPERATOR CHIEF Ot J44.9 CHRONIC OBSTRUCTIVE PULMONARY DISEASE, U 09/28/2019 ROGELIO SWENSON TELEGRAPHIC TYPEWRITER OPERATOR CHIEF Ot J98.4 OTHER DISORDERS OF LUNG 09/28/2019 ROGELIO SWENSON TELEGRAPHIC TYPEWRITER OPERATOR CHIEF Ot Z72.0 TOBACCO USE Procedures There is no data. Results Test Result Range Complete blood count (CBC) with automate d white blood cell (WBC) differential - 11/21/18 17:12 Blood leukocytes automated count (number/volume) 10.0 10*3/uL 4.3-11.0 Blood erythrocytes automated count (number/volume) 5.08 10*6/uL 4.35-5.85 Venous blood hemoglobin measurement (mass/volume) 14.8 g/dL 11.5-16.0 Blood hematocrit (volume fraction) 45 % 35-52 Automated erythrocyte mean corpuscular volume 89 [ foz_us] 80-99 Automated erythrocyte mean corpuscular h emoglobin (mass per erythrocyte) 29 pg 25-34 Automated erythrocyte mean corpuscular h emoglobin concentration measurement (mass/volume) 33 g/dL 32-36 Automated erythrocyte distribution width ratio 15. 0 % 10.0- 14.5 Automated blood platelet count (count/volume) 240 10*3/uL 130-400 Automated blood platelet mean volume measurement 11.0 [foz_us] 7.4-10.4 Automated blood neutrophils/100 leukocytes 70 % 42-75 Automated blood lymphocytes/100 leukocytes 21 % 12-44 Blood monocytes/100 leukocytes 6 % 0-12 Automated blood eosinophils/100 leukocytes 3 % 0-10 Automated blood basophils/100 leukocytes 1 % 0-10 Blood neutrophils automated count (number/volume) 7.0 10*3 1.8-7.8 Blood lymphocytes automated count (number/volume) 2.1 10*3 1.0-4.0 Blood monocytes automated count (number/volume) 0. 6 10*3 0.0-1.0 Automated eosinophil count 0.3 10*3/uL 0 .0-0.3 Automated blood basophil count (count/volume) 0.1 10*3/uL 0.0-0.1 Comprehensive metabolic panel - 11/21/18 17:12 Serum or plasma sodium measurement (moles/volume) 142 mmol/L 135-145 Serum or plasma potassium measurement (moles/volume) 3.9 mmol/L 3.6-5.0 Serum or plasma chloride measurement (moles/volume) 101 mmol/L 98-107 Carbon dioxide 30 mmol/L 21-32 Serum or plasma anion gap determination (moles/volume) 11 mmol/L 5-14 Serum or plasma urea nitrogen measurement (mass/volume ) 6 mg/dL 7-18 Serum or plasma creatinine measurement (mass/volume) 0.65 mg/dL 0.60-1.30 Serum or plasma urea nitrogen/creatinine mass ratio 9 NRG Serum or plasma creatinine measurement w ith calculation of estimated glomerular filtration rate > NRG Serum or plasma glucose measurement (mass/volume) 90 mg/dL 70-105 Serum or plasma calcium measurement (mass/volume) 8.9 mg/dL 8.5-10.1 Serum or plasma total bilirubin measurement (mass/volu me) 0.3 mg/dL 0.1-1.0 Serum or plasma alkaline phosphatase aleyda surement (enzymatic activity/volume) 72 U/L 40-136 Serum or plasma aspartate aminotransfera se measurement (enzymatic activity/volume) 27 U/L 5-34 Serum or plasma alanine aminotransferase measurement (enzymatic activity/volume) 22 U/L 0-55 Serum or plasma protein measurement (mass/volume) 6.7 g/dL 6.4-8.2 Serum or plasma albumin measurement (mass/volume) 4.1 g/dL 3.2-4.5 CALCIUM CORRECTED 8.8 mg/dL 8.5-10.1 Blood CBC with ordered manual differenti al panel - 08/11/19 16:45 Blood leukocytes automated count (number/volume) 9.2 10*3/uL 4.3-11.0 Blood erythrocytes automated count (number/volume) 4.66 10*6/uL 4.35-5.85 Venous blood hemoglobin measurement (mass/volume) 13.5 g/dL 11.5-16.0 Blood hematocrit (volume fraction) 41 % 35-52 Automated erythrocyte mean corpuscular volume 89 [ foz_us] 80-99 Automated erythrocyte mean corpuscular h emoglobin (mass per erythrocyte) 29 pg 25-34 Automated erythrocyte mean corpuscular h emoglobin concentration measurement (mass/volume) 33 g/dL 32-36 Automated erythrocyte distribution width ratio 13. 8 % 10.0- 14.5 Automated blood platelet count (count/volume) 205 10*3/uL 130-400 Automated blood platelet mean volume measurement 11.3 [foz_us] 7.4-10.4 Automated blood neutrophils/100 leukocytes 64 % 42-75 Automated blood lymphocytes/100 leukocytes 27 % 12-44 Blood monocytes/100 leukocytes 2 % NRG Automated blood eosinophils/100 leukocytes 2 % 0-10 Automated blood basophils/100 leukocytes 1 % 0-10 Blood neutrophils automated count (number/volume) 5.9 10*3 1.8-7.8 Blood lymphocytes automated count (number/volume) 2.5 10*3 1.0-4.0 Blood monocytes automated count (number/volume) 0. 5 10*3 0.0-1.0 Automated eosinophil count 0.2 10*3/uL 0 .0-0.3 Automated blood basophil count (count/volume) 0.1 10*3/uL 0.0-0.1 Manual blood segmented neutrophils/100 leukocytes 68 % NRG Blood band neutrophils/100 leukocytes 0 % NRG Manual blood lymphocytes/100 leukocytes 27 % NRG Manual eosinophils/100 leukocytes in nose 2 % NRG Manual blood basophils/100 leukocytes 1 % NRG Blood erythrocyte morphology finding identification NORMAL NRG Magnesium - 08/11/19 16:45 Magnesium 1.4 mg/dL 1.6-2.4 Comprehensive metabolic panel - 08/11/19 16:45 Serum or plasma sodium measurement (moles/volume) 139 mmol/L 135-145 Serum or plasma potassium measurement (moles/volume) 4.0 mmol/L 3.6-5.0 Serum or plasma chloride measurement (moles/volume) 101 mmol/L 98-107 Carbon dioxide 27 mmol/L 21-32 Serum or plasma anion gap determination (moles/volume) 11 mmol/L 5-14 Serum or plasma urea nitrogen measurement (mass/volume ) 9 mg/dL 7-18 Serum or plasma creatinine measurement (mass/volume) 0.65 mg/dL 0.60-1.30 Serum or plasma urea nitrogen/creatinine mass ratio 14 NRG Serum or plasma creatinine measurement w ith calculation of estimated glomerular filtration rate > NRG Serum or plasma glucose measurement (mass/volume) 119 mg/dL 70-105 Serum or plasma calcium measurement (mass/volume) 9.2 mg/dL 8.5-10.1 Serum or plasma total bilirubin measurement (mass/volu me) 0.3 mg/dL 0.1-1.0 Serum or plasma alkaline phosphatase aleyda surement (enzymatic activity/volume) 76 U/L 40-136 Serum or plasma aspartate aminotransfera se measurement (enzymatic activity/volume) 14 U/L 5-34 Serum or plasma alanine aminotransferase measurement (enzymatic activity/volume) 11 U/L 0-55 Serum or plasma protein measurement (mass/volume) 6.4 g/dL 6.4-8.2 Serum or plasma albumin measurement (mass/volume) 4.1 g/dL 3.2-4.5 CALCIUM CORRECTED 9.1 mg/dL 8.5-10.1 TROPONIN I FS - 08/11/19 16:45 TROPONIN I FS < 0.30 <0.30 PROBNP FS - 08/11/19 16:45 PROBNP FS 181.2 pg/mL <75.0 Influenza virus A and B antigen detectio n - 08/11/19 17:01 FLU RESULT NEGATIVE FOR INFLUENZA A AND B ANTIGENS BY IA NRG Coronavirus SARS-CoV-2 SO 2018 - 0 08:30 Coronavirus Ab [Units/volume] in Serum Negative Negative Methicillin resistant Staphylococcus aur eus (MRSA) screening culture - 01/12/20 09:15 Methicillin resistant Staphylococcus aureus (MRSA) scr eening culture NEG NRG Encounters ACCT No. Visit Date/Time Discharge Status Pt. Type Provider Facility Loc./Unit Complaint [id number] 01/12/2020 05:32:00 020 12:04:00 DIS Outpatient AMY KENT, MANUELA Acevedo [facility] PREOP EXOSTOSIS, SOFT TISSUE LESION LEFT [id number] 01/12/2020 08:46:00 12:03:00 DIS Outpatient AMY KENT, MANUELA Q [facility] PREOP EXOSTOSIS LEFT, SOFT TI SSUE LESION LEFT [id number] 08/11/2019 16:26:00 17:50:00 DIS Emergency SPIKE LARSON MD [facility] ER FS FLUCTUATING HEART RATE AND OXYGEN LEVELS [id number] 02/17/2019 09:07:00 23:59:59 CLS Outpatient ROGELIO SWENSON APRN [facility] RAD ALLERGIC RHINITIS,COUGH,COPD,TOBACCO USER [id number] 11/21/2018 14:53:00 18:18:00 DIS Emergency SO SIMON DO [facility] ER FS COUGH,DIARRHEA [id number] 10/25/2018 19:16:00 20:05:00 DIS Emergency SERA FOOTE, JOVITA Arredondo [facility] ER FS LT THUMB LAC [id number] 01/16/2020 08:00:00 P EN Preadmit MANUELA REYES DPM Q [facility] SDC EXOSTOSIS LEFT, SOFT TISSUE LESION LEFT
[2020-01-16] MEDS ORDERED: ceFAZolin INJECTION 1,000 MG in WATER (STERILE) FOR INJECTION 10 ML IV ONE (06:15)
[2020-01-16] MEDS ORDERED: ceFAZolin 2 GM IV Premixed 50 ML ONE (06:35)
[2020-01-16] MEDS ORDERED: MIDAZOLAM 2 MG/2 ML (VERSED) VIAL ONE (06:46)
[2020-01-16] MEDS ORDERED: fentaNYL INJECTION 100 MCG/2 ML AMP ONE (06:46)
[2020-01-16] MEDS ORDERED: proPOfol 200 MG/20 ML (DIPRIVAN) VIAL IV ONE (06:47)
[2020-01-16] MEDS ORDERED: LIDOCAINE PF 2% 5 ML (XYLOCAINE) VIAL ONE (06:47)
[2020-01-16] MEDS ORDERED: ONDANSETRON 4 MG/2 ML (SDV) Z0FRAN ONE (06:47)
[2020-01-16] MEDS ORDERED: SEVOFLURANE (ULTANE) 15 ML INHAL SOLN ONE ×3 (06:47→08:11)
[2020-01-16] MEDS ORDERED: FAMOTIDINE 20MG/2ML IV (PEPCID) ONE (06:53)
[2020-01-16] MEDS ORDERED: FAMOTIDINE 20MG/2ML IV (PEPCID) IV ONE (07:00)
[2020-01-16] MEDS ORDERED: BUPIVACAINE 0.5% 30 ML (SENSORCAINE) VIAL ONE (07:11)
[2020-01-16] MEDS ORDERED: LIDOCAINE 1% INJ 20 ML 20 ML VIAL ONE (07:11)
--- NOTE | 2020-01-16 07:44 | Progress Note-Pre Operative ---
Pre-Operative Progress Note H&P Reviewed The H&P was reviewed, patient examined and no changes noted. Date Seen by Provider: Jan 16, 2020 Time Seen by Provider: 07:43 Date H&P Reviewed: Jan 16, 2020 Time H&P Reviewed: 07:43 Pre-Operative Diagnosis: Soft Tissue lesion, exostosis, left foot MANUELA REYES DPM Jan 16, 2020 07:44
[2020-01-16] MEDS ORDERED: DEXAMETHASONE 10 MG/ML (DECADRON) 1 ML VIAL ONE (08:09)
[2020-01-16] MEDS ORDERED: PHENYLEPHRINE 100 MCG/ML 10 ML (ANESTHESIA) SYR ONE (08:36)
[2020-01-16] MEDS ORDERED: LACTATED RINGERS 1,000 ML IV SCH (08:40)
--- NOTE | 2020-01-16 08:40 | Progress Note-Post Operative ---
Post-Operative Progess Note Surgeon (s)/Multi Share Program Coordinator (s) Surgeon MANUELA REYES DPM Multi Share Program Coordinator: none Pre-Operative Diagnosis Soft Tissue lesion, exostosis, left foot Post-Operative Diagnosis Soft Tissue lesion, left Procedure & Operative Findings Date of Procedure 01/16/20 Procedure Performed/Findings Excision of soft tissue lesion left foot Anesthesia Type General Estimated Blood Loss Estimated blood loss (mL): Minimal Specimens/Packing Specimens Removed soft tissue left foot (likely Ganglionic Cyst) MANUELA REYES DPM Jan 16, 2020 08:40
[2020-01-16] MEDS ORDERED: HYDR-83 PO (08:44)
[2020-01-16] MEDS ORDERED: HYDROmorphone 2 MG/ML VIAL (DILAUDID) IV ONE (08:45)
[2020-01-16] MEDS ORDERED: ONDANSETRON 4 MG/2 ML (SDV) Z0FRAN IVP PRN (08:45)
[2020-01-16] MEDS ORDERED: HYDROcodone/APAP 5 MG/325 MG (LORTAB) TAB PO PRN (08:45)
--- NOTE | 2020-01-16 09:25 | NUR ---
PATIENT STATES THAT SHE IS ONLY ALLERGIC TO THE GENERIC LYRICA (PREGABALIN) AND THAT SHE TAKES NAMEBRAND LYRICA. DR. REYES INFORMED AND STATED IF SHE ISN'T ALLERGIC THEN TO CONTINUE.
--- NOTE | 2020-01-16 10:10 | NUR ---
650ML LACTATED RINGERS TOTAL GIVEN. FLIP LOPEZ RN INFORMED 550ML STILL UP.
--- NOTE | 2020-01-16 10:17 | OPERATIVE REPORT ---
DATE OF SERVICE: 01/16/2020 SURGEON: Elana Bell DPM. PREOPERATIVE DIAGNOSIS: Soft tissue lesion, left foot. POSTOPERATIVE DIAGNOSIS: Soft tissue lesion, left foot. PROCEDURE: Excision of soft tissue lesion, presumptive diagnosis is ganglionic cyst, left foot. WOUND CLASS: Clean. ANESTHESIA: General. HEMOSTASIS: Pneumatic ankle tourniquet at 250 mmHg. INDICATIONS: This 59-year-old female presents complaining of a painful lesion to the left foot. An attempt at conservative therapy is met with unsatisfactory results and the patient is agreeable to surgical intervention after risks and complications were discussed at length. The patient understands that there is a high reoccurrence rate for ganglionic cyst and she is willing to proceed. DESCRIPTION OF PROCEDURE: The patient was brought back to the operating table, placed in secure supine position. Appropriate timeout was performed. A general anesthetic was then induced. Pneumatic ankle tourniquet was placed on left lower extremity over several layers of padding. The left foot was then anesthetized utilizing 10 mL of 1:1 mixture of 1% Xylocaine, 0.5% Marcaine injected in a local infusion to the dorsal lateral aspect of the left foot, especially overlying the lateral, dorsal cutaneous nerve and sural nerve. The left foot was then prepped and draped in normal sterile manner. The left foot was then elevated, allowed to exsanguinate after which the tourniquet was inflated to 250 mmHg. Attention was then directed to the dorsal lateral aspect of the left foot where a dorsal lateral eminence was identified around the 4th and 5th metatarsal base area. The incision was approximately 3 mm in length and deepened bluntly with great care to identify and retract all vital neurovascular structures. The incision was deepened down with a sharp dissection through the deep fascia overlying the soft tissue lesion. The lesion was slightly nicked, and some gelatinous yellow, clear fluid was extruding out of the lesion. Utilizing a combination of sharp and blunt dissection, the 1 cm in diameter lesion was removed carefully from soft tissue attachment. Again, it seems to be associated with the fourth and fifth metatarsal cuboid joint area. The lesion was sent for gross and microscopic evaluation. The wound was irrigated thoroughly. No other abnormalities were identified. There is no bony prominences that I felt needed to be reduced. The wound was flushed once again with normal saline after which closure was performed in layers. Deep closure was performed with 3-0 Vicryl, superficial with 4-0 Vicryl, skin closure with 4-0 Prolene in a simple interrupted type stitch. Postoperative injection consisted of 10 mg of dexamethasone in a local infusion to the surgical site. Postoperative dressing consisted of Betadine soaked Adaptic, sterile 4 x 4, sterile Kerlix all secured with a Coban wrap. The patient tolerated the anesthesia and procedure well, was transported from the operating room to the recovery area with vital signs stable and vascular status intact to all digits of the left foot. She is to follow up in my office in two weeks period of time or sooner if necessary. Job ID: [id number] DocumentID: [id number] Dictated Date: 01/16/2020 08:49:57 Teachers Aide Date: 01/16/2020 10:17:06 Dictated By: DONTE JASSO
--- NOTE | 2020-01-16 11:18 | Anesthesia-General Post-Op ---
General Patient Condition Mental Status/LOC: Same as Preop Cardiovascular: Satisfactory Nausea/Vomiting: Absent Respiratory: Satisfactory Pain: Controlled Complications: Absent Post Op Complications Complications None Follow Up Care/Instructions Patient Instructions None needed. Anesthesia/Patient Condition Patient Condition Patient is doing well, no complaints, stable vital signs, no apparent adverse anesthesia problems. No complications reported per nursing. D/C home per [facility] Criteria: Yes SAUL MUÑOZ CRNA Jan 16, 2020 11:18
== END 2020-01-16 10:15 | disposition home or self-care (01) ==
LOC: SDC 06:02
PROVIDERS: ATTEND Podiatrist Foot & Ankle Surgery
DX: M67.472 Ganglion, left ankle and foot (principal); J44.9 Chronic obstructive pulmonary disease, unspecified; E03.9 Hypothyroidism, unspecified; G47.33 Obstructive sleep apnea (adult) (pediatric); F33.0 Major depressive disorder, recurrent, mild; E11.42 Type 2 diabetes mellitus with diabetic polyneuropathy; E66.01 Morbid (severe) obesity due to excess calories; I10 Essential (primary) hypertension; I25.10 Atherosclerotic heart disease of native coronary artery without angina pectoris; Z79.899 Other long term (current) drug therapy; Z87.891 Personal history of nicotine dependence; Z68.39 Body mass index [BMI] 39.0-39.9, adult; Z85.41 Personal history of malignant neoplasm of cervix uteri; Z95.0 Presence of cardiac pacemaker; Z88.8 Allergy status to other drugs, medicaments and biological substances; Z88.1 Allergy status to other antibiotic agents; Z91.040 Latex allergy status; Z79.84 Long term (current) use of oral hypoglycemic drugs; Z79.02 Long term (current) use of antithrombotics/antiplatelets; Z90.710 Acquired absence of both cervix and uterus; Z90.49 Acquired absence of other specified parts of digestive tract
CPT/HCPCS: 82962; 88304

== ENCOUNTER 2020-06-30 22:42 | Emergency (ER) | payer MEDICARE, OTHER ==
[~2020-06-30 22:42] MED LIST changes: +ACHD5005 PO; +AMLO-250 PO; -AMLO5TAB9 PO; -PANT40TA3 PO; +PANT40TA52 PO
--- NOTE | 2020-06-30 23:08 | ED Lower Extremity ---
General Chief Complaint: Lower Extremity Stated Complaint: RIGHT FOOT SWOLLEN Nursing Triage Note: Pt complaining of right foot pain and swelling that started about a week ago, no injury reported Nursing Sepsis Screen: No Definite Risk Source: patient Exam Limitations: no limitations History of Present Illness Date Seen by Provider: Jun 30, 2020 Time Seen by Provider: 23:03 59-year-old female presenting to the emergency department with a complaint of right ankle and right foot pain. Pain is stabbing and worsened when she is applying weight to her foot. Pain has been ongoing for 1 week and has been refractory to home medications including Aleve, Lyrica. Patient denies any fevers, chills. She has noticed no redness to the foot or ankle. There has been mild swelling to the top of her foot and the lateral aspect of her ankle. She thinks that she may have rolled her ankle approximately a week ago preceding the pain, but cannot remember it. She notes that she has 4 dogs at home 1 of which weighs 110 pounds which can be difficult to manage and digs holes in the backyard which she frequently steps in. No prior injuries to the ankle or foot.Patient endorses tobacco use. 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 Allergies and Home Medications Allergies Coded Allergies: gabapentin (Verified Allergy, Unknown, 01/16/20) latex (Verified Allergy, Unknown, 01/16/20) meloxicam (Verified Allergy, Unknown, 10/25/18) pregabalin (Verified Allergy, Unknown, 11/21/18) vancomycin (Verified Allergy, Unknown, 10/25/18) Home Medications Amlodipine Besylate 5 Mg Tablet, 5 MG PO DAILY, (Reported) Atorvastatin Calcium 80 Mg Tablet, 80 MG PO HS, (Reported) Clopidogrel Bisulfate 75 Mg Tablet, 75 MG PO DAILY, (Reported) Fluticasone/Salmeterol 1 Each Blst.w.dev, 1 EACH IH BID, (Reported) Furosemide 20 Mg Tablet, 20 MG PO DAILY, (Reported) Hydrocodone/Acetaminophen 1 Each Tablet, 1 EACH PO Q4H Prescribed by: MANUELA REYES on 01/16/20 2527 Hydrocodone/Acetaminophen 1 Each Tablet, 1 TAB PO Q4-6HR Prescribed by: MARIA M MOREL on 06/30/20 4347 Levothyroxine Sodium 25 Mcg Tablet, 25 MCG PO DAILY, (Reported) Levothyroxine Sodium 200 Mcg Tablet, 200 MCG PO DAILY, (Reported) Lisinopril 40 Mg Tablet, 40 MG PO DAILY, (Reported) Metformin HCl 850 Mg Tablet, 850 MG PO BID WITH MEALS, (Reported) Pantoprazole Sodium 40 Mg Tablet.dr, 40 MG PO DAILY, (Reported) Pregabalin 75 Mg Capsule, 75 MG PO BID, (Reported) Zolpidem Tartrate 10 Mg Tablet, 10 MG PO HS, (Reported) Patient Home Medication List Home Medication List Reviewed: Yes Review of Systems Constitutional: no symptoms reported; No fever, No malaise, No weakness Genitourinary: see HPI Musculoskeletal: joint pain, joint swelling Skin: see HPI Psychiatric/Neurological: See HPI Past Svcgrzz-Hngdwo-Rzcjjr Hx Patient Social History Alcohol Use: Denies Use Recreational Drug Use: No Type Used: Cigarettes 2nd Hand Smoke Exposure: No Recent Foreign Travel: No Contact w/Someone Who Travel: No Recent Infectious Disease Expo: No Recent Hopitalizations: No Physical Abuse: No Sexual Abuse: No Seasonal Allergies Seasonal Allergies: Yes Past Medical History Surgeries: Yes (back sx) Abdominal, Section, Coronary Stent, Gallbladder, Hysterectomy, Orthopedic, Pacemaker, Thyroidectomy Respiratory: Yes (Nocturnal hypoxia) Asthma, Sleep Apnea, COPD, Emphysema Currently Using CPAP: Yes (with oxygen) Cardiac: Yes (meditronic pacemaker, ) Coronary Artery Disease, Heart Attack, High Cholesterol, Hypertension, Irregular Heartbeat Neurological: No Neuropathy Reproductive Disorders: No 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 Genitourinary: No Gastrointestinal: Yes Gastroesophageal Reflux, Chronic Constipation Musculoskeletal: Yes (spinal stimulator) Fibromyalgia, Chronic Back Pain Endocrine: Yes Hypothyroidsim, Diabetes, Non-Insulin dep HEENT: No Cancer: Yes Cervical What Type of Treatment Did You: Surgical Intervention Psychosocial: Yes Depression Integumentary: Yes (sore on lower abd) Blood Disorders: No Physical Exam Vital Signs Vital Signs - First Documented 06/30/20 22:52 Temp 36.5 Pulse 71 Resp 18 B/P (MAP) 173/84 (113) Pulse Ox 95 O2 Delivery Room Air Capillary Refill : Less Than 3 Seconds Height, Weight, BMI Height: 5'3.00" Weight: 205lbs. oz. 92.125523an; 39.02 BMI Method:Stated General Appearance: WD/WN, no apparent distress HEENT: PERRL/EOMI Neck: supple Cardiovascular: regular rate, rhythm, other (2+ dorsal pedis and posterior tibial pulses in the right foot, capillary refill less than 2 seconds.) Respiratory: no respiratory distress, no accessory muscle use Gastrointestinal: No distended Back: normal inspection Neurologic/Tendon: normal sensation, normal motor functions, other (Sensation is intact in the right foot.) Neurologic/Psychiatric: alert, normal mood/affect Skin: normal color, warm/dry, other (Patient's right foot has normal skin color, well perfused.) Musculoskeletal exam: No tenderness to palpation of the proximal tibia and fibula on the right leg. Slight swelling is noted to the lateral aspect of the right ankle when compared to the left without overlying erythema, no warmth to touch. Diminished active range of motion of the ankle limited to pain. She has tenderness to palpation of the lateral malleolus. She has a small area of swelling on the dorsal aspect overlying her third metatarsal. Tenderness palpation of her third and fourth metatarsal. No fifth metatarsal tenderness to palpation, no midfoot tenderness to palpation. No obvious bruising is appreciated. Progress/Results/Core Measures Results/Orders My Orders Orders - MARIA M MOREL MD Ankle 3 View Right (06/30/20 23:01) Foot 3 View Right (06/30/20 23:01) Rx-Hydrocodone/Apap 5-325 Mg (Rx-Vicodin (06/30/20 23:30) Vital Signs/I&O 06/30/20 22:52 Temp 36.5 Pulse 71 Resp 18 B/P (MAP) 173/84 (113) Pulse Ox 95 O2 Delivery Room Air Blood Pressure Mean: 113 Progress Progress Note : Progress Note Patient's examination is likely secondary to traumatic injury to her ankle. She had a slight amount of swelling, no erythema, redness, subjective infectious symptoms. Low suspicion for septic arthritis or inflammatory arthritis. Plain films of her right ankle, right foot were obtained. She had strong arterial pulses in the right foot. Skin was well-perfused. Plain films did not reveal any acute fractures on my interpretation. She likely experienced soft tissue injury possible ligamentous injury of the right ankle. I encouraged her to continue with symptomatic control with elevation, Tylenol along with prescribing her a few doses of narcotics. Patient drove to the emergency department preventing me from giving her opiates prior to her discharging. I instructed her to minimize her use of NSAIDs given her comorbidities she is on dual antiplatelet therapy.Patient was discharged from the emergency department with 4 tabs of [place] 5 mg / 325 mg. She was encouraged to follow-up with her primary care provider next week if her symptoms have not been improving. Diagnostic Imaging Diagonstic Imaging: Xray Plain Films/CT/US/NM/MRI: ankle, other (foot ) Comments Plain films obtained of the ankle and the foot on my interpretation pending a formal radiology read in the morning revealed no acute fracture. There is evidence of degenerative joint disease with joint space narrowing. There is a free-floating segment of the lateral aspect of her cuboid, but she has no focal pain on exam. Possible old injury. Reviewed: Reviewed by Me Departure Impression Primary Impression: Sprain and strain of ankle Additional Impression: Sprain or strain of foot Disposition: 01 HOME, SELF-CARE Condition: Stable Departure-Patient Inst. Decision time for Depature: 23:26 Referrals: SELFBRITTA MD (PCP/Family) Primary Care Physician Patient Instructions: Acute Pain, Adult, Contusion (DC), How to Make a Hot/Cold Rice Pack Add. Discharge Instructions: You were seen in the emergency department for foot and ankle pain. This is likely due to a traumatic injury that has resulted in injury of your ligaments. You had x-rays obtained in the emergency department that did not show any obvious fractures. Please continue to use medication at home to treat your symptoms including Tylenol, and hydrocodone. Please elevate your foot and ice to help relieve the swelling and pain. If you are not feeling better, you should follow-up with your primary care provider in the next 5 to 7 days. You are allowed to bear weight as tolerated on your foot only limited by pain. Please discontinue use of NSAIDs including Aleve and ibuprofen as this can have an adverse reaction with your other medications. You were given a narcotic in the emergency department. Please do not operate any machines or vehicles when taking this medication. This medication can make you sleepy. You should also take a stool softener as it can cause constipation. All discharge instructions reviewed with patient and/or family. Voiced understanding. Scripts Hydrocodone/Acetaminophen (Hydrocodone/Acetaminophen 5 MG/325 MG TAB) 1 Each Tablet 1 TAB PO Q4-6HR for Pain MDD 10 TABS for 7 Days, TAB Prov: MARIA M MOREL MD 06/30/20 MARIA M MOREL MD Jun 30, 2020 23:08
[2020-06-30] MEDS ORDERED: HYDR-4226 PO (23:27)
[2020-06-30] MEDS ORDERED: RX-HYDROCODONE/APAP 5/325 MG #4 TAB PK PO ONE (23:27)
[2020-06-30] MEDS ORDERED: RX-HYDROCODONE/APAP 5/325 MG #4 TAB PK PO PRN (23:30)
[2020-06-30 23:31] VITALS: BP 173/84
--- NOTE | 2020-07-01 07:01 | Diagnostic Imaging Report ---
EXAMINATION: Right ankle radiographs, 3 views. COMPARISON: None. HISTORY: 59-year-old female, right ankle and foot pain. FINDINGS: There is degenerative type enthesopathy at the Achilles tendon insertion. There is a calcaneal heel spur. There is mild degenerative type enthesopathy of the midfoot. There is no tibiotalar joint effusion. There is no identified acute fracture. There is no cortical or aggressive bone destruction. There is mild tibiotalar osteoarthritis. There is no identified radiopaque foreign body. There is mild dorsal soft tissue swelling at the level of the midfoot. IMPRESSION: 1. Multifocal degenerative type enthesopathy. 2. Mild tibiotalar osteoarthritis. 3. Nonspecific soft tissue swelling dorsally at the level of the midfoot. 4. No identified acute bony abnormality at the level of the right ankle. Dictated by: Dictated on workstation # [id number]
--- NOTE | 2020-07-01 09:24 | Diagnostic Imaging Report ---
INDICATION: Foot pain and swelling. COMPARISON: Right ankle radiographs performed concurrently. TECHNIQUE: 3 views of right foot were obtained. FINDINGS: No fracture or osseous erosions. Moderate to severe degenerative changes are present in the midfoot with dorsal osteophyte formation and nonuniform joint space narrowing. Mild degenerative arthritis of the 1st MTP. Large os peroneum is present. Plantar and dorsal calcaneal spurs are noted. IMPRESSION: 1. No radiographic features of osteomyelitis. 2. Severe degenerative arthritis in the midfoot. Dictated by: Dictated on workstation # [id number]
== END 2020-06-30 23:35 | disposition home or self-care (01) ==
LOC: EDUNIT# 22:42 → ER FS 22:45
DX: S93.401A Sprain of unspecified ligament of right ankle, initial encounter (principal); S93.601A Unspecified sprain of right foot, initial encounter; I25.10 Atherosclerotic heart disease of native coronary artery without angina pectoris; I25.2 Old myocardial infarction; I10 Essential (primary) hypertension; E78.00 Pure hypercholesterolemia, unspecified; J44.9 Chronic obstructive pulmonary disease, unspecified; E11.9 Type 2 diabetes mellitus without complications; E03.9 Hypothyroidism, unspecified; K21.9 Gastro-esophageal reflux disease without esophagitis; G89.29 Other chronic pain; M54.9 Dorsalgia, unspecified; Z85.41 Personal history of malignant neoplasm of cervix uteri; Z95.5 Presence of coronary angioplasty implant and graft; Z95.0 Presence of cardiac pacemaker; Z79.890 Hormone replacement therapy; Z91.040 Latex allergy status; Z88.1 Allergy status to other antibiotic agents; Z88.8 Allergy status to other drugs, medicaments and biological substances; Z79.84 Long term (current) use of oral hypoglycemic drugs; Z79.891 Long term (current) use of opiate analgesic; X50.0XXA Overexertion from strenuous movement or load, initial encounter
CPT/HCPCS: 73610; 73630

== ENCOUNTER 2021-06-01 19:32 | Emergency (ER) | payer MEDICARE, OTHER ==
[~2021-06-01 19:32] MED LIST changes: +HYDR-4226 PO; -LISI40TA PO; +LISI40TA9 PO
--- OUTSIDE RECORDS SUMMARY | 2021-06-01 19:37 | XMS REPORT | Clinical Summary ---
Author Author [facility] Organization [facility] Address Unknown Phone Unavailable Care Team Providers Care Talent Acquisition Administrator Name Role Phone Self, Johnny FOOTE PCP Allergies Comments Active Allergy Reactions Severity Noted Date Adhesive Tape-Silicones Rash High Gabapentin Constipation High 09/25/2008 Meloxicam Rash High Morphine Nausea And 05/25/2017 Vomiting Vancomycin Rash High Medications End Date Status Medication Sig Dispensed Refills Start Date Active metFORMIN (GLUCOPHAGE) Take 850 mg 0 850 MG tablet by mouth daily. Active levothyroxine (SYNTHROID, Take 200 mcg 0 LEVOTHROID) 200 MCG by mouth tablet daily. Active lisinopril Take 40 mg by 0 (PRINIVIL,ZESTRIL) 40 MG mouth daily. tablet Active doxepin (SINEQUAN) 25 MG Take 25 mg by 0 capsule mouth nightly. Active ipratropium-albuterol Inhale 3 mL 0 (DUO-NEB) 0.5-3 mg/3 mL via nebulizer nebulizer 4 (four) times a day. Active pregabalin (LYRICA) 100 Take 100 mg 0 MG capsule by mouth 4 (four) times a day. Active hydrOXYzine (ATARAX) 25 Take 25 mg by 0 MG tablet mouth nightly. Active albuterol (PROVENTIL HFA) Inhale 2 0 90 mcg/actuation HFA puffs every 6 inhaler (six) hours as needed for wheezing. Active nitroglycerin (NITROSTAT) Dissolve 0.4 0 0.4 MG SL tablet mg under the tongue every 5 (five) minutes as needed for chest pain. May repeat for a total of 3 doses. Active lidocaine (XYLOCAINE) 5 % Apply 0 ointment topically as needed. Active furosemide (LASIX) 20 MG Take 20 mg by 0 tablet mouth 2 (two) times a day. Active omeprazole (PRILOSEC) 40 Take 40 mg by 0 MG capsule mouth daily. Active fluticasone-salmeterol Inhale 2 0 (ADVAIR HFA) 230-21 puffs 2 (two) mcg/actuation inhaler times a day. Active ondansetron (ZOFRAN) 4 MG Take 4 mg by 0 tablet mouth every 8 (eight) hours as needed for nausea. Active levothyroxine (SYNTHROID, Take 25 mcg 0 LEVOTHROID) 25 MCG tablet by mouth daily. Active atorvastatin (LIPITOR) 80 Take 80 mg by 0 MG tablet mouth daily. Active clopidogrel (PLAVIX) 75 Take 75 mg by 0 mg tablet mouth daily. Active betamethasone Apply 1 g 0 dipropionate (DIPROLENE) topically 2 0.05 % ointment (two) times a day. Active aspirin 81 MG EC tablet Take 81 mg by 0 mouth daily. Active Problems Problem Noted Date Left anterior knee pain 05/28/2017 Low back pain 05/25/2017 Sleep apnea 05/25/2017 Anxiety 10/31/2010 Chest pain 10/31/2010 Malar and maxillary bones, closed fracture 1 Gingival and periodontal disease 10/04/2009 Overview: Formatting of this note might be differ ent from the original. imoupdate Hypothyroidism 03/15/2009 Personal history of endocrine, metabolic, and immunit y disorder 02/23/2009 Dyshidrotic eczema 02/04/2008 Gastroesophageal reflux disease 07/21/2007 S/P drug eluting coronary stent placement 07/12/2007 Overview: Formatting of this note might be differ ent from the original. 3.0X33 RX Cypher sirolimus-eluting sten t to prox RCA, and 2.5X28 RX Cypher sirolimus-eluting stent deployed in the mid RCA. Coronary artery disease involving [place] coronary art [facility] [place] heart 06/26/2007 Acrochordon 12/28/2006 Diabetes mellitus, type 2 10/26/2006 Cervical radiculopathy 07/08/2006 Tobacco dependence syndrome 07/11/2005 Osteoarthrosis involving more than one site but not g eneralized 07/04/2005 Essential hypertension Mixed hyperlipidemia Morbid obesity with BMI of 40.0-44.9, a dult COPD (chronic obstructive pulmonary dis ease) Overview: Formatting of this note might be differ ent from the original. possible, Fibromyalgia History of cervical cancer Resolved Problems Problem Noted Date Resolved Date Chronic coronary artery disease 05/25/20172017 Chronic mucoid otitis media of left ear 05/25/2017 05/25/2017 Muscle spasm 05/25/2017 05/25/2017 Other specified soft tissue disorders 05/25/2017 05/25/2017 Disorder of lipoprotein metabolism 05/25/2017 Cough 10/31/2010 05/25/2017 Tendinitis of shoulder 10/31/2010 05/25/2017 Candidiasis of vagina 10/31/2010 05/25/2017 Pain in shoulder 09/26/2010 05/25/2017 Pneumonia 09/26/2010 05/25/2017 Constipation 07/25/2010 05/25/2017 Thoracic back pain 07/09/2010 09/01/2017 Bite of nonvenomous arthropod 12/11/2009 05/25/20 17 Eczema 08/27/2009 05/25/2017 Dyslipidemia 06/14/2009 09/01/2017 Neoplasm of uncertain behavior of skin 04/24/2008 05/25/2017 Depression 01/14/2008 05/25/2017 Encounter for other administrative examinations 12/17/2007 05/25/2017 Allergic rhinitis 11/10/2007 10/01/2017 Disorder of teeth and supporting structures 11/10/2007 05/25/2017 Toe pain 10/05/2007 05/25/2017 S/P PTCA (percutaneous transluminal coronary angioplasty) 07/12/2007 09/01/2017 Overview: Formatting of this note might be differ ent from the original. Two Cypher JOHN were [facility] on[facility] total occlusion lesion in the proximal and mid RCA. Encounter for immunization 06/23/2007 05/25/2017 Chest pain, atypical 04/27/2007 05/25/2017 Diarrhea 03/01/2007 05/25/2017 Nail disorder 11/02/2006 05/25/2017 Closed fracture of lunate (semilunar) bone of wrist 200605/25/2017 Accidental fall 09/21/2006 05/25/2017 Wrist pain, right 09/21/2006 05/25/2017 Hyperlipidemia 06/30/2006 05/25/2017 Hypokalemia 06/23/2006 05/25/2017 Dental caries 06/12/2006 05/25/2017 Other specified abnormal findings of blood chemistry 06/1205/25/2017 Headache 06/12/2006 05/25/2017 Facial pain 06/12/2006 05/25/2017 Pharyngitis, acute 03/27/2006 05/25/2017 Vaginal pruritus 01/15/2006 05/25/2017 Extrapyramidal and movement disorder 01/06/2006 1 Chronic low back pain 01/06/2006 05/25/2017 Bronchitis, acute 11/21/2005 05/25/2017 Ulnar nerve entrapment 11/21/2005 05/25/2017 Carpal tunnel syndrome 11/21/2005 05/25/2017 Foreign body in foot 10/28/2005 05/25/2017 Arm pain 09/16/2005 05/25/2017 Oliguria 09/16/2005 05/25/2017 Contact dermatitis 07/22/2005 10/01/2017 Hand pain, right 07/22/2005 05/25/2017 Other sites of candidiasis 07/14/2005 05/25/2017 Paresthesia of skin 07/04/2005 05/25/2017 Infected sebaceous cyst 07/02/2005 05/25/2017 Back pain 04/10/2005 05/25/2017 Neck sprain and strain 04/10/2005 09/01/2017 Neck pain 04/10/2005 05/25/2017 Immunizations Name Administration Dates Next Due Td 10/31/2005 Family History Medical History Relation Name Comments Alzheimer's disease Father Heart disease Father Hypertension Father Diabetes Maternal Grandfather Lung cancer Mother Alzheimer's disease Paternal Grandfather Relation Name Status Comments Father Maternal Grandfather Mother Cause of was cance at age 59. (Age 59) Paternal Grandfather Social History Date Tobacco Use Types Packs/Day Years Used Current Every Day Smoker 1.5 Smokeless Tobacco: Never Used Tobacco Cessation: Ready to Quit: No Comments Alcohol Use Standard Drinks/Week No 0 (1 standard drink = 0.6 o z pure alcohol) Sex Assigned at Date Recorded Female 02/13/2019 7:45 AM CDT Last Filed Vital Signs Reading Time Taken Comments Vital Sign 133/70 09/02/2017 3:27 PM MAINS AND SERVICE SUPERVISOR avg Blood Pressure 48 09/02/2017 3:24 PM MAINS AND SERVICE SUPERVISOR Pulse 36.7 C (98.1 F) 06/10/2017 5:48 PM MAINS AND SERVICE SUPERVISOR Temperature 18 06/10/2017 7:00 PM MAINS AND SERVICE SUPERVISOR Respiratory Rate 94% 06/10/2017 7:00 PM MAINS AND SERVICE SUPERVISOR Oxygen Saturation - - Inhaled Oxygen Concentration 106.6 kg (235 lb) 09/02/2017 3:24 PM MAINS AND SERVICE SUPERVISOR Weight 160 cm (5' 3") 09/02/2017 3:24 PM MAINS AND SERVICE SUPERVISOR Height 41.63 09/02/2017 3:24 PM MAINS AND SERVICE SUPERVISOR Body Mass Index Plan of Treatment Health Maintenance Due Date Last Done Comments Tobacco Cessation 1960 Counseling # Cervical Cancer Screening 11/03/2010 11/04/2007 via Pap Smear Zoster Vaccine# (1 of 2) 12/31/2011 Td/Tdap# 11/01/2015 10/31/2005 Influenza Vaccine (#1) 2021 Pneumococcal Vaccine: Aged Out No longer eligib le based on patient's age to Pediatrics (0 to 5 Years) complete this topic and At-Risk Patients (6 to 64 Years) Results Not on filefrom Last 3 Months Insurance Type Payer Benefit Subscriber ID Effective Phone Address Plan / Dates Group Medicare MEDICARE MEDICARE [id number] 2006- [phone] WPS GHA PART A B Present ATTN CLAIMS DEPT [address] [place] [address] [id number] 1 Celia Faulkner Personal/F Self 1960 [address] (Home) [place] [address] Celia Faulkner Personal/F Self 1960 [address] (Home) [place], [place] [address] Advance Directives For more information, please contact: [phone] Patient Neighborhood Planner Explanation Type Date Recorded Advance Directives and Living Will Power of Ultrasound Applications Specialist Care Teams Start Date End Date Talent Acquisition Administrator Relationship Specialty 09/01/17 Johnny Antunez MD PCP - General Family [address] [place] [address] [place] [address]
[2021-06-01] MEDS ORDERED: NS IV 1000 ML 1,000 ML IV STA (19:53)
[2021-06-01] MEDS ORDERED: fentaNYL INJ 100 MCG/2 ML AMP IVP STA (19:53)
[2021-06-01 19:58] LABS: BASOPHILS # (AUTO) 0.1 10^3/uL (0.0-0.1); BASOPHILS % (AUTO) 1 % (0-10); EOSINOPHILS # (AUTO) 0.4 10^3/uL (0.0-0.3); EOSINOPHILS % (AUTO) 4 % (0-10); HEMATOCRIT 39 % (35-52); HEMOGLOBIN 12.9 g/dL (11.5-16.0); LYMPHOCYTES # (AUTO) 2.3 X 10^3 (1.0-4.0); LYMPHOCYTES % (AUTO) 21 % (12-44); MEAN CORPUSCULAR HEMOGLOBIN 29 pg (25-34); MEAN CORPUSCULAR HGB CONC 34 g/dL (32-36); MEAN CORPUSCULAR VOLUME 86 fL (80-99); MEAN PLATELET VOLUME 11.1 fL (9.0-12.2); MONOCYTES # (AUTO) 0.5 X 10^3 (0.0-1.0); MONOCYTES % (AUTO) 5 % (0-12); NEUTROPHILS % (AUTO) 69 % (42-75); PLATELET COUNT 237 10^3/uL (130-400); WHITE BLOOD COUNT 10.9 10^3/uL (4.3-11.0)
[2021-06-01] MEDS ORDERED: HOLD METFORMIN - RECEIVED CONTRAST 20 ML VIAL IV SCH (20:00)
[2021-06-01] MEDS ORDERED: IOHEXOL 350 MG/ML 100 ML (OMNIPAQUE 350) VIAL IV ONE (20:00)
[2021-06-01] MEDS ORDERED: NS 100 ML (IVPB) BAG IV ONE (20:00)
[2021-06-01 20:01] LABS: BILIRUBIN,URINE NEGATIVE (NEGATIVE); CLARITY,URINE CLEAR; COLOR,URINE YELLOW; GLUCOSE, URINE (UA) NEGATIVE (NEGATIVE); KETONES,URINE NEGATIVE (NEGATIVE); LEUKOCYTE ESTERASE ,URINE NEGATIVE (NEGATIVE); NITRITE,URINE NEGATIVE (NEGATIVE); PH,URINE 6.5 (5-9); PROTEIN,URINE NEGATIVE (NEGATIVE)
--- NOTE | 2021-06-01 20:01 | ED GI ---
General Chief Complaint: Abdominal/GI Problems Stated Complaint: STOMACH PAIN Nursing Triage Note: Pt states she started having abd pain and constipation around May 27. Pt was given several medications by her primary and was told to increase her miralax. Pt states that she was able to have bowel movements but that she had some diarrhea and then started having nausea. Pt presents tonight with LLQ pain and states the pain increases after eating. Source of Information: Patient History of Present Illness Date Seen by Provider: Jun 01, 2021 Time Seen by Provider: 19:34 Initial Comments 60-year-old female presenting with complaints of abdominal pain and constipation since May 27. She has been taking medications for stomach acid and constipation since then. She has been having increasing pain especially to the left lower quadrant. She also is having black-colored stools now. She occasionally has some nausea. She felt that the pain was worse tonight and when she had called the clinic during the week they told her she could not see Dr. Antunez until the . She has had chills but denies fever. She has no pain with urination. She has had multiple previous surgeries on her abdomen including a gastric bypass. She states she has never had a colonoscopy because of the gastric bypass she was told that she may not be able to have a colonoscopy. She denies any history of diverticulitis, colitis, GI bleeding in the past. Timing/Duration: 1 Week Severity/Quality: Throbbing Location: Generalized Abdomen (Generalized but worse in the left lower quadrant) Modifying Factors: Worsens With Eating Associated Symptoms: Back Pain (Chronic back pain that is no worse than usual); No Chest Pain, No Diaphoresis; Fever/Chills (Chills but no fever); No Fatigue, No Headache, No Heartburn; Nausea/Vomiting (Nausea but no vomiting); No Shortness of Air; Swelling/Mass in Abdomen (Feels bloated); No Syncope, No Weakness Allergies and Home Medications Allergies Coded Allergies: gabapentin (Verified Allergy, Unknown, 01/16/20) latex (Verified Allergy, Unknown, 01/16/20) meloxicam (Verified Allergy, Unknown, 10/25/18) pregabalin (Verified Allergy, Unknown, 11/21/18) vancomycin (Verified Allergy, Unknown, 10/25/18) Patient Home Medication List Home Medication List Reviewed: Yes Amlodipine Besylate (Amlodipine Besylate) 5 Mg Tablet, 5 MG PO DAILY, (Reported) Entered as Reported by: DOREEN SOUZA on 01/12/20 110 Atorvastatin Calcium (Atorvastatin Calcium) 80 Mg Tablet, 80 MG PO HS, (Reported) Entered as Reported by: DOREEN SOUZA on 01/12/20 110 Clopidogrel Bisulfate (Clopidogrel) 75 Mg Tablet, 75 MG PO DAILY, (Reported) Entered as Reported by: DOREEN SOUZA on 01/12/20 110 Dicyclomine HCl (Dicyclomine HCl) 10 Mg Capsule, 10 MG PO Q6H PRN for abdominal pain Prescribed by: MALORIE DIAMOND on 06/01/21 214 Fluticasone/Salmeterol (Advair 250-50 Diskus) 1 Each Blst.w.dev, 1 EACH IH BID, (Reported) Entered as Reported by: DOREEN SOUZA on 01/12/20 110 Furosemide (Furosemide) 20 Mg Tablet, 20 MG PO DAILY, (Reported) Entered as Reported by: DOREEN SOUZA on 01/12/20 1152 Hydrocodone/Acetaminophen (Hydrocodone-Acetamin 5-325 mg) 1 Each Tablet, 1 EACH PO Q4H Prescribed by: MANUELA REYES on 01/16/20 0844 Hydrocodone/Acetaminophen (Hydrocodone/Acetaminophen 5 MG/325 MG TAB) 1 Each Tablet, 1 TAB PO Q4-6HR Prescribed by: MARIA M MOREL on 06/30/20 2327 Hydrocodone/Acetaminophen (Hydrocodone-Acetamin 5-325 mg) 1 Each Tablet, 1 TAB PO Q8H PRN for PAIN-SEVERE (8-10) Prescribed by: MALORIE DIAMOND on 06/01/21 214 Levothyroxine Sodium (Levothyroxine Sodium) 25 Mcg Tablet, 25 MCG PO DAILY, (Reported) Entered as Reported by: DOREEN SOUZA on 01/12/20 110 Levothyroxine Sodium (Levothyroxine Sodium) 200 Mcg Tablet, 200 MCG PO DAILY, (Reported) Entered as Reported by: DOREEN SOUZA on 01/12/20 110 Lisinopril (Lisinopril) 40 Mg Tablet, 40 MG PO DAILY, (Reported) Entered as Reported by: DOREEN SOUZA on 01/12/20 1105 Metformin HCl (Metformin HCl) 850 Mg Tablet, 850 MG PO BID WITH MEALS, ( Reported) Entered as Reported by: DOREEN SOUZA on 01/12/20 1105 Metoclopramide HCl (Metoclopramide HCl) 10 Mg Tablet, 10 MG PO Q6H PRN for NAUSEA/VOMITING Prescribed by: MALORIE DIAMOND on 06/01/21 214 Pantoprazole Sodium (Pantoprazole Sodium) 40 Mg Tablet.dr, 40 MG PO DAILY, (Reported) Entered as Reported by: DOREEN SOUZA on 01/12/20 1105 Pregabalin (Lyrica) 75 Mg Capsule, 75 MG PO BID, (Reported) Entered as Reported by: DOREEN SOUZA on 01/12/20 1105 Zolpidem Tartrate (Ambien) 10 Mg Tablet, 10 MG PO HS, (Reported) Entered as Reported by: DOREEN SOUZA on 01/12/20 1152 Review of Systems Review of Systems Constitutional: chills; No fever EENTM: No Symptoms Reported Respiratory: Shortness of Air (Chronic and no worse than usual) Cardiovascular: Denies Chest Pain Gastrointestinal: See HPI Genitourinary: Denies Burning, Denies Drainage, Denies Flank Pain, Denies Pain Musculoskeletal: back pain (Chronic) Skin: No rash Psychiatric/Neurological: Denies Headache Past Yfvokhv-Hrcctn-Gkvssn Hx Patient Social History Use of E-Cig and/or Vaping dev: No Substance use?: No Alcohol Use?: No Pt feels they are or have been: No Seasonal Allergies Seasonal Allergies: Yes Past Medical History Surgeries: Yes (back sx) Abdominal, Section, Coronary Stent, Gallbladder, Hysterectomy, Orthopedic, Pacemaker, Thyroidectomy Respiratory: Yes (Nocturnal hypoxia) Asthma, Sleep Apnea, COPD, Emphysema Currently Using CPAP: Yes (with oxygen) Cardiac: Yes (meditronic pacemaker, ) Coronary Artery Disease, Heart Attack, High Cholesterol, Hypertension, Irregular Heartbeat Neurological: No Neuropathy 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 Genitourinary: No Gastrointestinal: Yes Gastroesophageal Reflux, Chronic Constipation Musculoskeletal: Yes (spinal stimulator) Fibromyalgia, Chronic Back Pain Endocrine: Yes Hypothyroidsim, Diabetes, Non-Insulin dep HEENT: No Cancer: Yes Cervical What Type of Treatment Did You: Surgical Intervention Psychosocial: Yes Depression Integumentary: Yes (sore on lower abd) Blood Disorders: No Physical Exam Vital Signs Vital Signs - First Documented 06/01/21 06/01/21 19:36 21:49 Temp 36.9 Pulse 69 Resp 20 B/P (MAP) 195/71 (112) Pulse Ox 95 O2 Delivery Room Air Capillary Refill : Less Than 3 Seconds Height/Weight/BMI Height: 5'3.00" Weight: 205lbs. oz. 92.911681ys; 39.02 BMI Method:Stated General Appearance: mild distress, obese Neck: non-tender, full range of motion, supple, normal inspection Respiratory: chest non-tender, no respiratory distress, no accessory muscle use, decreased breath sounds, rhonchi, wheezing Cardiovascular: normal peripheral pulses, regular rate, rhythm Gastrointestinal: soft, no pulsatile mass, abnormal bowel sounds (Hypoactive); No guarding, No rebound; tenderness (Diffuse tenderness but worse in the left lower quadrant and suprapubic) Rectal: deferred Extremities: normal range of motion, non-tender, normal capillary refill Neurologic/Psychiatric: alert, oriented x 3 Skin: normal color, warm/dry Images 1 - diffuse pain but worse with palpation to left side of abdomen Focused Exam Lactate Level 06/01/21 19:46: Lactic Acid Level 0.92 Lactic Acid Level Laboratory Tests Test 06/01/21 19:46 Lactic Acid Level 0.92 MMOL/L (0.50-2.00) Progress/Results/Core Measures Results/Orders Lab Results Laboratory Tests Test 06/01/21 19:46 06/01/21 19:49 Range/Units White Blood Count 10.9 4.3-11.0 10^3/uL Red Blood Count 4.50 3.80-5.11 10^6/uL Hemoglobin 12.9 11.5-16.0 g/dL Hematocrit 39 35-52 % Mean Corpuscular Volume 86 80-99 fL Mean Corpuscular Hemoglobin 29 25-34 pg Mean Corpuscular Hemoglobin Concent 34 32-36 g/dL Red Cell Distribution Width 16.1 H 10.0-14.5 % Platelet Count 237 130-400 10^3/uL Mean Platelet Volume 11.1 9.0-12.2 fL Immature Granulocyte % (Auto) 0 % Neutrophils (%) (Auto) 69 42-75 % Lymphocytes (%) (Auto) 21 12-44 % Monocytes (%) (Auto) 5 0-12 % Eosinophils (%) (Auto) 4 0-10 % Basophils (%) (Auto) 1 0-10 % Neutrophils # (Auto) 752.0 H 1.8-7.8 X 10^3 Lymphocytes # (Auto) 2.3 1.0-4.0 X 10^3 Monocytes # (Auto) 0.5 0.0-1.0 X 10^3 Eosinophils # (Auto) 0.4 H 0.0-0.3 10^3/uL Basophils # (Auto) 0.1 0.0-0.1 10^3/uL Immature Granulocyte # (Auto) 0.0 0.0-0.1 10^3/uL Sodium Level 138 135-145 MMOL/L Potassium Level 4.2 3.6-5.0 MMOL/L Chloride Level 101 98-107 MMOL/L Carbon Dioxide Level 28 21-32 MMOL/L Anion Gap 9 5-14 MMOL/L Blood Urea Nitrogen 11 7-18 MG/DL Creatinine 0.77 0.60-1.30 MG/DL Estimat Glomerular Filtration Rate 77 BUN/Creatinine Ratio 14 Glucose Level 136 H 70-105 MG/DL Lactic Acid Level 0.92 0.50-2.00 MMOL/L Calcium Level 9.3 8.5-10.1 MG/DL Corrected Calcium 9.3 8.5-10.1 MG/DL Total Bilirubin 0.3 0.1-1.0 MG/DL Aspartate Amino Transf (AST/SGOT) 12 5-34 U/L Alanine Aminotransferase (ALT/SGPT) 10 0-55 U/L Alkaline Phosphatase 87 40-136 U/L Total Protein 6.3 L 6.4-8.2 GM/DL Albumin 4.0 3.2-4.5 GM/DL Lipase 30 8-78 U/L Urine Color YELLOW Urine Clarity CLEAR Urine pH 6.5 5-9 Urine Specific [place] 1.010 L 1.016-1.022 Urine Protein NEGATIVE NEGATIVE Urine Glucose (UA) NEGATIVE NEGATIVE Urine Ketones NEGATIVE NEGATIVE Urine Nitrite NEGATIVE NEGATIVE Urine Bilirubin NEGATIVE NEGATIVE Urine Urobilinogen 0.2 < = 1.0 MG/DL Urine Leukocyte Esterase NEGATIVE NEGATIVE Urine RBC (Auto) NEGATIVE NEGATIVE Urine RBC NONE /HPF Urine WBC 0-2 /HPF Urine Squamous Epithelial Cells 2-5 /HPF Urine Crystals NONE /LPF Urine Bacteria TRACE /HPF Urine Casts NONE /LPF Urine Mucus NEGATIVE /LPF Urine Yeast FEW H /HPF Urine Culture Indicated NO My Orders Orders - MALORIE DIAMOND MD Comprehensive Metabolic Panel (06/01/21 19:53) Lipase (06/01/21:53) Ua Culture If Indicated (06/01/21:53) Ed Iv/Invasive Line Start (06/01/21:53) Cbc With Automated Diff (06/01/21:53) Ct Abdomen/Pelvis W (06/01/21:53) Ns Iv 1000 Ml (Sodium Chloride 0.9%) (06/01/21:53) Fentanyl Inj (Sublimaze Injection) (06/01/21:53) Lactic Acid Analyzer (06/01/21:53) Iohexol Injection (Omnipaque 350 Mg/Ml 1 (06/01/21 20:00) Received Contrast (Hold Metformin- Contr (06/01/21 20:00) Ns (Ivpb) (Sodium Chloride 0.9% Ivpb Bag (06/01/21 20:00) Rx-Dicyclomine Capsule (Rx-Bentyl Capsul (06/01/21 21:45) Rx-Metoclopramide Tab (Rx-Reglan Tab) (06/01/21 21:45) Medications Given in ED Current Medications Medications Dose Ordered Sig/Jorge Route Start Time Stop Time Status Last Admin Dose Admin Iohexol 100 ml ONCE ONCE IV 06/01/21 20:00 06/01/21 20:01 DC 06/01/21 20:25 100 ML Sodium Chloride 100 ml ONCE ONCE IV 06/01/21 20:00 06/01/21 20:01 DC 06/01/21 20:25 100 ML Vital Signs/I&O 06/01/21 06/01/21 19:36 21:49 Temp 36.9 36.9 Pulse 69 65 Resp 20 20 B/P (MAP) 195/71 (112) 167/62 Pulse Ox 95 95 O2 Delivery Room Air 2 Blood Pressure Mean: 112 Progress Progress Note #1: Progress Note Check labs as well as urinalysis. Ordered CT scan of the abdomen and pelvis to evaluate for diverticulitis, colitis, bowel obstruction, abdominal mass, colon mass, fluid collection. Give IV fluids with fentanyl for pain Progress Note #2: Progress Note Labs appear stable without acute significant normality. Her hemoglobin appears stable without showing signs of anemia or acute blood loss. Her chemistry panel was also stable and had a negative lactic acid. She reported some improvement in her pain with treatment in the ED. Progress Note #3: Progress Note CT scan of her abdomen and pelvis came back showing no acute intra-abdominal process. She had no obstruction or signs of diverticulitis or colitis. There is no evidence of perforation or free air. I will check and see if the patient is willing to undergo a rectal exam to check for Hemoccult. However with her hemoglobin is stable and vital signs stable even if she has a GI bleed it would be a matter of continuing the medicines she is already on. I could add on a as needed pain medicine until she sees her primary provider. I could also give her the phone number for the surgery clinic for follow-up and possible endoscopy. Pt did not want to go through rectal exam. Will treat with Bentyl for abd pain/cramping, Reglan for nausea and motility, Miralax daily or every other day to help with bowel movements. Decrease Fiber con to previous dose as it may be causing more bloating for her. For severe pain take Hydrocodone. Encouraged to check with Dr. Antunez and/or Dr. Brown about scope to look for ulcers or issue with colon, Diagnostic Imaging Diagonstic Imaging: CT Plain Films/CT/US/NM/MRI: abdomen, pelvis Comments NAME: [facility] REC#: [id number] PT STATUS: REG ER : 1960 PHYSICIAN: MALORIE DIAMOND MD ADMIT DATE: 06/01/21/ER FS Draft Date of Exam:06/01/21 CT ABDOMEN/PELVIS W PROCEDURE: CT abdomen and pelvis with contrast. TECHNIQUE: Multiple contiguous axial images were obtained through the abdomen and pelvis after administration of intravenous contrast. Auto Exposure Controls were utilized during the CT exam to meet ALARA standards for radiation dose reduction. All CT scans use one or more of the following dose optimizing techniques: automated exposure control, MA and/or KvP adjustment based on patient size and exam type or iterative reconstruction. INDICATION: Left lower quadrant abdominal pain. Black stools. COMPARISON: None. FINDINGS: Cardiomegaly. Postoperative changes of a gastric bypass. Cholecystectomy. Hysterectomy. The liver, pancreas, spleen, adrenals, kidneys, collecting systems and bladder are negative. Normal appendix. No free intraperitoneal air or fluid. No lymphadenopathy. No evidence of bowel obstruction. Advanced atherosclerotic calcifications. Epidural spinal stimulator enters the spinal canal at T8-T9. L4-L5 laminectomies. No acute osseous finding. IMPRESSION: 1. No acute CT finding in the abdomen or pelvis. 2. Multiple postoperative changes including cholecystectomy, gastric bypass and hysterectomy. 3. Cardiomegaly is partially visualized. Dictated on workstation # [id number] Dict: 06/01/212054 Trans: 06/01/212102 PJE [id number] Interpreted by: DUANE ASCENCIO MD Electronically signed by: Reviewed: Reviewed by Me Departure Impression Primary Impression: Left lower quadrant abdominal pain Additional Impressions: Dark stools Abdominal bloating Disposition: HOME, SELF-CARE Condition: Stable Departure-Patient Inst. Decision time for Depature: 21:37 Referrals: BASIM BROWN MD, MAXWELL MD (PCP/Family) Primary Care Physician Patient Instructions: Abdominal Pain, Adult ED Add. Discharge Instructions: Stay well hydrated and drink plenty of water and electrolyte drinks. Decrease back to your regular dose of FiberCon. Take Miralax 1 capful or 17 grams in 8 ounces of water or juice daily or every other day to help with your bowel movements For Abdominal bloating and cramping take Bentyl (Dicyclomine) 10 mg every 6 hours as needed for pain. For nausea and sour stomach take Metoclopramide (Reglan) 10 mg every 6 hours as needed for nausea. For severe pain take Hydrocodone/Acetaminophen Check with Dr. Antunez or surgeon Dr. Brown about having scope to look for stomach ulcer or issue in your colon. All discharge instructions reviewed with patient and/or family. Voiced understanding. Scripts Hydrocodone/Acetaminophen (Hydrocodone-Acetamin 5-325 mg) 1 Each Tablet 1 TAB PO Q8H PRN for PAIN-SEVERE (8-10) for 3 Days, #9 TAB 0 Refills Prov: MALORIE DIAMOND MD 06/01/21 Dicyclomine HCl (Dicyclomine HCl) 10 Mg Capsule 10 MG PO Q6H PRN for abdominal pain for 7 Days, #28 CAP 0 Refills Prov: MALORIE DIAMOND MD 06/01/21 Metoclopramide HCl (Metoclopramide HCl) 10 Mg Tablet 10 MG PO Q6H PRN for NAUSEA/VOMITING for 7 Days, #28 TAB 0 Refills Prov: MALORIE DIAMOND MD 06/01/21 MALORIE DIAMOND MD Jun 01, 2021 20:01
[2021-06-01 20:02] LABS: BACTERIA,URINE TRACE /HPF; WBC,URINE 0-2 /HPF; YEAST,URINE FEW /HPF
[2021-06-01 20:14] LABS: BILIRUBIN,TOTAL 0.3 MG/DL (0.1-1.0); CALCIUM 9.3 MG/DL (8.5-10.1); CREATININE SERUM 0.77 MG/DL (0.60-1.30); POTASSIUM 4.2 MMOL/L (3.6-5.0)
[2021-06-01 20:15] LABS: TOTAL PROTEIN 6.3 GM/DL (6.4-8.2)
--- NOTE | 2021-06-01 21:04 | Diagnostic Imaging Report ---
PROCEDURE: CT abdomen and pelvis with contrast. TECHNIQUE: Multiple contiguous axial images were obtained through the abdomen and pelvis after administration of intravenous contrast. Auto Exposure Controls were utilized during the CT exam to meet ALARA standards for radiation dose reduction. All CT scans use one or more of the following dose optimizing techniques: automated exposure control, MA and/or KvP adjustment based on patient size and exam type or iterative reconstruction. INDICATION: Left lower quadrant abdominal pain. Black stools. COMPARISON: None. FINDINGS: Cardiomegaly. Postoperative changes of a gastric bypass. Cholecystectomy. Hysterectomy. The liver, pancreas, spleen, adrenals, kidneys, collecting systems and bladder are negative. Normal appendix. No free intraperitoneal air or fluid. No lymphadenopathy. No evidence of bowel obstruction. Advanced atherosclerotic calcifications. Epidural spinal stimulator enters the spinal canal at T8-T9. L4-L5 laminectomies. No acute osseous finding. IMPRESSION: 1. No acute CT finding in the abdomen or pelvis. 2. Multiple postoperative changes including cholecystectomy, gastric bypass and hysterectomy. 3. Cardiomegaly is partially visualized. Dictated by: Dictated on workstation # [id number]
[2021-06-01] MEDS ORDERED: ACHD5005 PO (21:43)
[2021-06-01] MEDS ORDERED: DICY10CA12 PO (21:43)
[2021-06-01] MEDS ORDERED: MTC10T PO (21:43)
[2021-06-01] MEDS ORDERED: RX-DICYCLOMINE 10 MG (BENTYL) CAP PPK#4 PO PRN (21:45)
[2021-06-01] MEDS ORDERED: RX-METOCLOPRAMIDE 5 MG (REGLAN) TAB PPK#8 PO PRN (21:45)
[2021-06-01 21:49] VITALS: BP 167/62
== END 2021-06-01 21:52 | disposition home or self-care (01) ==
LOC: EDUNIT# 19:32 → ER FS 19:34
DX: R10.32 Left lower quadrant pain (principal); K92.1 Melena; R14.0 Abdominal distension (gaseous); E66.9 Obesity, unspecified; G47.30 Sleep apnea, unspecified; J44.9 Chronic obstructive pulmonary disease, unspecified; I25.2 Old myocardial infarction; I10 Essential (primary) hypertension; I25.10 Atherosclerotic heart disease of native coronary artery without angina pectoris; E78.00 Pure hypercholesterolemia, unspecified; E11.9 Type 2 diabetes mellitus without complications; E03.9 Hypothyroidism, unspecified; K21.9 Gastro-esophageal reflux disease without esophagitis; G89.29 Other chronic pain; M54.9 Dorsalgia, unspecified; Z68.39 Body mass index [BMI] 39.0-39.9, adult; Z79.01 Long term (current) use of anticoagulants; Z79.84 Long term (current) use of oral hypoglycemic drugs; Z79.890 Hormone replacement therapy; Z79.899 Other long term (current) drug therapy; Z79.891 Long term (current) use of opiate analgesic
CPT/HCPCS: 36415; 74177; 80053; 81000; 83605; 83690; 85025

== ENCOUNTER 2021-07-19 12:38 | Inpatient (IN) | payer MEDICARE, OTHER ==
[~2021-07-19] VITALS: Ht 160.3 cm; Wt 110.8 kg
[~2021-07-19 12:38] MED LIST changes: +DICY10CA12 PO; +MTC10T PO
[2021-07-19 13:13] LABS: BASOPHILS % (AUTO) 1 % (0-10); EOSINOPHILS % (AUTO) 1 % (0-10); HEMATOCRIT 36 % (35-52); HEMOGLOBIN 11.8 g/dL (11.5-16.0); LYMPHOCYTES % (AUTO) 22 % (12-44); MEAN CORPUSCULAR HEMOGLOBIN 28 pg (25-34); MEAN CORPUSCULAR HGB CONC 32 g/dL (32-36); MEAN CORPUSCULAR VOLUME 85 fL (80-99); MEAN PLATELET VOLUME 11.1 fL (9.0-12.2); MONOCYTES % (AUTO) 6 % (0-12); NEUTROPHILS % (AUTO) 70 % (42-75); PLATELET COUNT 154 10^3/uL (130-400); WHITE BLOOD COUNT 4.4 10^3/uL (4.3-11.0)
[2021-07-19 13:14] LABS: EOSINOPHILS # (AUTO) 0.1 10^3/uL (0.0-0.3); MONOCYTES # (AUTO) 0.2 X 10^3 (0.0-1.0); NEUTROPHILS # (AUTO) 3.1 X 10^3 (1.8-7.8)
--- NOTE | 2021-07-19 13:16 | Diagnostic Imaging Report ---
Indication: Hypoxia Comparison: 08/11/2019 Single view of the chest demonstrates cardiac enlargement with mild interstitial edema. There is no pneumothorax or effusion. Pacemaker stable. There is no pneumothorax. Spinal stimulator device is seen centrally. Impression: Cardiac enlargement with mild interstitial edema compatible with CHF. Followup recommended. Dictated by: Dictated on workstation # [id number]
[2021-07-19 13:31] LABS: CARBON DIOXIDE 29 MMOL/L (21-32); CHLORIDE 100 MMOL/L (98-107); POTASSIUM 3.5 MMOL/L (3.6-5.0); SODIUM 139 MMOL/L (135-145)
[2021-07-19 13:32] LABS: ALANINE AMINOTRANSFERASE 15 U/L (0-55); ALBUMIN 3.6 GM/DL (3.2-4.5); ALKALINE PHOSPHATASE 107 U/L (40-136); BILIRUBIN,TOTAL 0.2 MG/DL (0.1-1.0); BUN/CREATININE RATIO 9; CALCIUM 8.6 MG/DL (8.5-10.1); CREATININE SERUM 0.65 MG/DL (0.60-1.30); GFR ESTIMATED 93; GLUCOSE 264 MG/DL (70-105); TOTAL PROTEIN 6.7 GM/DL (6.4-8.2)
[2021-07-19] MEDS ORDERED: FUROSEMIDE 40 MG/4 ML INJ (LASIX) IVP ONE (13:45)
--- NOTE | 2021-07-19 14:07 | ED Respiratory ---
General Chief Complaint: Respiratory Problems Stated Complaint: SOB Nursing Triage Note: PT REPORTS SOB FOR THE PAST 2 WEEKS. SHE REPORTS SHE STOPPED GETING HER OXYGEN IN SEPTEMBER AND IS SUPPOSE TO BE ON 4L AT ALL TIMES BC OF AN INSURANCE REASON. Source: patient History of Present Illness Date Seen by Provider: Jul 19, 2021 Time Seen by Provider: 13:00 Initial Comments Patient is a 60-year-old female with history of COPD, congestive heart failure tobaccoism and medical noncompliance who is home O2 supplemental dependent who presents with increased shortness of breath. Patient states she normally requires 4 L of oxygen but has been off it for several months. She reports increased shortness of breath, nonproductive cough and shortness of breath with exertion and while at rest. Symptoms are worse when supine. No fever, nausea vomiting or sweats. Denies increased leg pain or swelling. States she does not have a local PCP and loss of medical coverage. Patient was evaluated at urgent care today and tested negative for Covid. Timing/Duration: week, getting worse Severity: moderate Prior Episodes/Possible Cause: other Modifying Factors: Improves With Other Associated Symptoms: other Allergies and Home Medications Allergies Coded Allergies: gabapentin (Verified Allergy, Unknown, 01/16/20) latex (Verified Allergy, Unknown, 01/16/20) meloxicam (Verified Allergy, Unknown, 10/25/18) pregabalin (Verified Allergy, Unknown, 11/21/18) vancomycin (Verified Allergy, Unknown, 10/25/18) Patient Home Medication List Home Medication List Reviewed: Yes Amlodipine Besylate (Amlodipine Besylate) 5 Mg Tablet, 5 MG PO DAILY, (Reported) Entered as Reported by: DOREEN SOUZA on 01/12/20 1105 Atorvastatin Calcium (Atorvastatin Calcium) 80 Mg Tablet, 80 MG PO HS, (Reported) Entered as Reported by: DOREEN SOUZA on 01/12/20 1105 Clopidogrel Bisulfate (Clopidogrel) 75 Mg Tablet, 75 MG PO DAILY, (Reported) Entered as Reported by: DOREEN SOUZA on 01/12/20 1105 Dicyclomine HCl (Dicyclomine HCl) 10 Mg Capsule, 10 MG PO Q6H PRN for abdominal pain Prescribed by: MALORIE DIAMOND on 06/01/212142 Fluticasone/Salmeterol (Advair 250-50 Diskus) 1 Each Blst.w.dev, 1 EACH IH BID, (Reported) Entered as Reported by: DOREEN SOUZA on 01/12/20 1105 Furosemide (Furosemide) 20 Mg Tablet, 20 MG PO DAILY, (Reported) Entered as Reported by: DOREEN SOUZA on 01/12/20 1152 Hydrocodone/Acetaminophen (Hydrocodone-Acetamin 5-325 mg) 1 Each Tablet, 1 EACH PO Q4H Prescribed by: MANUELA REYES on 01/16/20 0844 Hydrocodone/Acetaminophen (Hydrocodone/Acetaminophen 5 MG/325 MG TAB) 1 Each Tablet, 1 TAB PO Q4-6HR Prescribed by: MARIA M MOREL on 06/30/20 2327 Hydrocodone/Acetaminophen (Hydrocodone-Acetamin 5-325 mg) 1 Each Tablet, 1 TAB PO Q8H PRN for PAIN-SEVERE (8-10) Prescribed by: MALORIE DIAMOND on 06/01/212143 Levothyroxine Sodium (Levothyroxine Sodium) 25 Mcg Tablet, 25 MCG PO DAILY, (Reported) Entered as Reported by: DOREEN SOUZA on 01/12/20 110 Levothyroxine Sodium (Levothyroxine Sodium) 200 Mcg Tablet, 200 MCG PO DAILY, (Reported) Entered as Reported by: DOREEN SOUZA on 01/12/20 110 Lisinopril (Lisinopril) 40 Mg Tablet, 40 MG PO DAILY, (Reported) Entered as Reported by: DOREEN SOUZA on 01/12/20 110 Metformin HCl (Metformin HCl) 850 Mg Tablet, 850 MG PO BID WITH MEALS, (Reported) Entered as Reported by: DOREEN SOUZA on 01/12/20 110 Metoclopramide HCl (Metoclopramide HCl) 10 Mg Tablet, 10 MG PO Q6H PRN for NAUSEA/VOMITING Prescribed by: MALORIE DIAMOND on 06/01/212142 Pantoprazole Sodium (Pantoprazole Sodium) 40 Mg Tablet.dr, 40 MG PO DAILY, (Reported) Entered as Reported by: DOREEN SOUZA on 01/12/20 110 Pregabalin (Lyrica) 75 Mg Capsule, 75 MG PO BID, (Reported) Entered as Reported by: DOREEN SOUZA on 01/12/20 1105 Zolpidem Tartrate (Ambien) 10 Mg Tablet, 10 MG PO HS, (Reported) Entered as Reported by: DOREEN SOUZA on 01/12/20 1152 Review of Systems Review of Systems Constitutional: see HPI EENTM: see HPI Respiratory: see HPI Cardiovascular: see HPI Gastrointestinal: see HPI Genitourinary: see HPI Skin: see HPI Psychiatric/Neurological: See HPI Hematologic/Lymphatic: See HPI Immunological/Allergic: see HPI Past Abxjbhd-Wftuan-Boyfaa Hx Patient Social History Tobacco Use?: Yes Tobacco type used: Cigarettes Smoking Status: Current Everyday Smoker Substance use?: No Alcohol Use?: No Pt feels they are or have been: No Immunizations Up To Date COVID19 Vaccine Cdl Instructor: Moderna Seasonal Allergies Seasonal Allergies: Yes Past Medical History Surgery/Hospitalization HX: COPD Surgeries: Yes (back sx) Abdominal, Section, Coronary Stent, Gallbladder, Hysterectomy, Orthopedic, Pacemaker, Thyroidectomy Respiratory: Yes (Nocturnal hypoxia) Asthma, Sleep Apnea, COPD, Emphysema Currently Using CPAP: Yes (with oxygen) Cardiac: Yes (meditronic pacemaker, ) Coronary Artery Disease, Heart Attack, High Cholesterol, Hypertension, Irregular Heartbeat Neurological: No Neuropathy Reproductive Disorders: No 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: Hysterectomy Genitourinary: No Gastrointestinal: Yes Gastroesophageal Reflux, Chronic Constipation Musculoskeletal: Yes (spinal stimulator) Fibromyalgia, Chronic Back Pain Endocrine: Yes Hypothyroidsim, Diabetes, Non-Insulin dep HEENT: No Cancer: Yes Cervical What Type of Treatment Did You: Surgical Intervention Psychosocial: Yes Depression Integumentary: Yes (sore on lower abd) Blood Disorders: No Physical Exam Vital Signs - First Documented 07/19/21 07/19/21 12:40 12:45 Temp 36.7 Pulse 83 Resp 20 B/P (MAP) 162/68 (99) Pulse Ox 82 O2 Delivery Room Air O2 Flow Rate 12.00 Capillary Refill : Less Than 3 Seconds Height: 5'3.00" Weight: 205lbs. oz. 92.585284dq; 42.00 BMI Method:Stated General Appearance: WD/WN, no apparent distress Eyes: Bilateral Eye Normal Inspection, Bilateral Eye PERRL, Bilateral Eye EOMI HEENT: PERRL/EOMI, normal ENT inspection, pharynx normal Neck: non-tender, full range of motion Respiratory: decreased breath sounds, rhonchi, wheezing Cardiovascular: normal peripheral pulses, regular rate, rhythm Gastrointestinal: soft Neurologic/Psychiatric: ammonia technician II-XII nml as tested, alert, oriented x 3 Progress/Results/Core Measures Suspected Sepsis SIRS Temperature: Pulse: 83 Respiratory Rate: 20 Laboratory Tests 07/19/21 12:50: White Blood Count 4.4 Blood Pressure 162 /68 Mean: 99 Laboratory Tests 07/19/21 12:50: Creatinine 0.65, Platelet Count 154, Total Bilirubin 0.2 Results/Orders Lab Results Laboratory Tests Test 07/19/21 12:50 Range/Units White Blood Count 4.4 4.3-11.0 10^3/uL Red Blood Count 4.27 3.80-5.11 10^6/uL Hemoglobin 11.8 11.5-16.0 g/dL Hematocrit 36 35-52 % Mean Corpuscular Volume 85 80-99 fL Mean Corpuscular Hemoglobin 28 25-34 pg Mean Corpuscular Hemoglobin Concent 32 32-36 g/dL Red Cell Distribution Width 16.5 H 10.0-14.5 % Platelet Count 154 130-400 10^3/uL Mean Platelet Volume 11.1 9.0-12.2 fL Immature Granulocyte % (Auto) 1 % Neutrophils (%) (Auto) 70 42-75 % Lymphocytes (%) (Auto) 22 12-44 % Monocytes (%) (Auto) 6 0-12 % Eosinophils (%) (Auto) 1 0-10 % Basophils (%) (Auto) 1 0-10 % Neutrophils # (Auto) 3.1 1.8-7.8 X 10^3 Lymphocytes # (Auto) 1.0 1.0-4.0 X 10^3 Monocytes # (Auto) 0.2 0.0-1.0 X 10^3 Eosinophils # (Auto) 0.1 0.0-0.3 10^3/uL Basophils # (Auto) 0.0 0.0-0.1 10^3/uL Immature Granulocyte # (Auto) 0.0 0.0-0.1 10^3/uL Sodium Level 139 135-145 MMOL/L Potassium Level 3.5 L 3.6-5.0 MMOL/L Chloride Level 100 98-107 MMOL/L Carbon Dioxide Level 29 21-32 MMOL/L Anion Gap 10 5-14 MMOL/L Blood Urea Nitrogen 6 L 7-18 MG/DL Creatinine 0.65 0.60-1.30 MG/DL Estimat Glomerular Filtration Rate 93 BUN/Creatinine Ratio 9 Glucose Level 264 H 70-105 MG/DL Calcium Level 8.6 8.5-10.1 MG/DL Corrected Calcium 8.9 8.5-10.1 MG/DL Total Bilirubin 0.2 0.1-1.0 MG/DL Aspartate Amino Transf (AST/SGOT) 21 5-34 U/L Alanine Aminotransferase (ALT/SGPT) 15 0-55 U/L Alkaline Phosphatase 107 40-136 U/L Troponin I < 0.30 <0.30 NG/ML Pro-B-Type Natriuretic Peptide 124.9 H <75.0 PG/ML Total Protein 6.7 6.4-8.2 GM/DL Albumin 3.6 3.2-4.5 GM/DL My Orders Orders - INA JOHNSON DO Cbc With Automated Diff (07/19/21 13:02) Comprehensive Metabolic Panel (07/19/21 13:02) Troponin I Fs (07/19/21 13:02) Chest 1 View Ap/Pa Only (07/19/21 13:02) Ekg-Prn For Chest Pain Or Rhyt (07/19/21 13:02) Ekg Tracing (07/19/21 13:13) Arterial Blood Gas (07/19/21 13:19) Furosemide Injection (Lasix Injection) (07/19/21 13:45) Probnp Fs (07/19/21 13:48) Methylprednisolone Sod Succ (Solu-Medrol (07/19/21 14:30) Albuterol/Ipra Inhalation Soln (Duoneb I (07/19/21 14:30) Svn Small Volume Nebulizer (07/19/21 14:20) Medications Given in ED Current Medications Medications Dose Ordered Sig/Jorge Route Start Time Stop Time Status Last Admin Dose Admin Albuterol/ Ipratropium 3 ml ONCE ONCE INH 07/19/21 14:30 07/19/21 14:31 07/19/21 14:24 3 ML Furosemide 40 mg ONCE ONCE IVP 07/19/21 13:45 07/19/21 13:46 DC 07/19/21 13:43 40 MG Methylprednisolone Sodium Succinate 40 mg ONCE ONCE IV 07/19/21 14:30 07/19/21 14:31 07/19/21 14:24 40 MG Vital Signs/I&O 07/19/21 07/19/21 12:40 12:45 Temp 36.7 Pulse 83 Resp 20 B/P (MAP) 162/68 (99) Pulse Ox 82 89 O2 Delivery Room Air OxyMask O2 Flow Rate 12.00 Capillary Refill : Less Than 3 Seconds Blood Pressure Mean: 99 Departure Communication (Admissions) Chest x-ray: Pulmonary vascular congestion EKG: Paced rhythm. Lasix, steroids, DuoNeb, supplemental oxygen given. Patient symptoms most consistent with COPD exacerbation with CHF component. Vital signs stable on o xygen. Dr. Garrett accepts to [facility]. Impression Primary Impression: Acute and chronic respiratory failure with hypoxia Additional Impressions: Congestive heart failure COPD with exacerbation Disposition: HOME, SELF-CARE Condition: Stable Admissions Decision to Admit Reason: Admit from ER (General) Decision to Admit/Date: Jul 19, 2021 Departure-Patient Inst. Referrals: SELFBRITTA MD (PCP) Primary Care Physician INA JOHNSON DO Jul 19, 2021 14:06
[2021-07-19] MEDS ORDERED: RT-ALBUTEROL/IPRATROPIUM 3 ML (DUONEB) VIAL INH ONE (14:30)
[2021-07-19] MEDS ORDERED: methylPREDNISolone 40 MG/ML (Solu-MEDROL) VIAL IV ONE (14:30)
[2021-07-19] MEDS ORDERED: diphenhydrAMINE 25 MG TAB (BENADRYL) PO PRN (16:15)
[2021-07-19] MEDS ORDERED: ACETAMINOPHEN 325 MG TABLET PO PRN (16:15)
[2021-07-19] MEDS ORDERED: RT-ALBUTEROL/IPRATROPIUM 3 ML (DUONEB) VIAL INH NR (16:15)
[2021-07-19] MEDS ORDERED: ONDANSETRON 4 MG/2 ML (SDV) Z0FRAN IVP PRN (16:15)
[2021-07-19 16:32] VITALS: BP 124/58
[2021-07-19] MEDS ORDERED: FLU QUADRIvalent (3YOA+) 60 mcg/0.5 ml 2021-22(AFLURIA) IM ONE (17:00)
[2021-07-19] MEDS: RT-ALBUTEROL/IPRATROPIUM 3 ML (DUONEB) VIAL INH SCH ×2 (19:00→23:02)
[2021-07-19] MEDS: methylPREDNISolone 40 MG/ML (Solu-MEDROL) VIAL IV SCH (19:14)
[2021-07-19] MEDS: FUROSEMIDE 40 MG/4 ML INJ (LASIX) IVP SCH (19:15)
[2021-07-19] MEDS: ENOXAPARIN 40 MG/0.4 ML (LOVENOX) SYR SC SCH (19:22)
[2021-07-19 20:30] VITALS: BP 148/90
[2021-07-19] MEDS ORDERED: RT--FLUTICASONE/SALMETEROL 113-14 (AIRDUO RespiCLICK) IH SCH (21:00)
[2021-07-19] MEDS ORDERED: ADVAIR HFA 115/21 MCG INHALER 8 GM IH SCH (21:00)
[2021-07-19] MEDS ORDERED: ALPRAZolam 0.25 MG (XANAX) TAB PO PRN (21:30)
[2021-07-19] MEDS ORDERED: morphine INJ 4 MG/ML 1 ML (VIAL/SYRINGE) IVP PRN (22:15)
[2021-07-19] MEDS: HYDROcodone/APAP 5 MG/325 MG (LORTAB) TAB PO PRN (22:28)
[2021-07-20] MEDS: methylPREDNISolone 40 MG/ML (Solu-MEDROL) VIAL IV SCH ×2 (00:37→06:12)
[2021-07-20] MEDS: RT-ALBUTEROL/IPRATROPIUM 3 ML (DUONEB) VIAL INH SCH ×2 (02:11→06:56)
[2021-07-20 04:31] VITALS: BP 147/80
[2021-07-20] MEDS: ENOXAPARIN 40 MG/0.4 ML (LOVENOX) SYR SC SCH (05:14)
[2021-07-20 05:56] LABS: BASOPHILS % (AUTO) 0 % (0-10); EOSINOPHILS % (AUTO) 0 % (0-10); HEMATOCRIT 38 % (35-52); HEMOGLOBIN 12.2 g/dL (11.5-16.0); LYMPHOCYTES # (AUTO) 0.4 10^3/uL (1.0-4.0); LYMPHOCYTES % (AUTO) 10 % (12-44); MEAN CORPUSCULAR HEMOGLOBIN 27 pg (25-34); MEAN CORPUSCULAR HGB CONC 32 g/dL (32-36); MEAN CORPUSCULAR VOLUME 85 fL (80-99); MEAN PLATELET VOLUME 10.9 fL (9.0-12.2); MONOCYTES # (AUTO) 0.1 10^3/uL (0.0-1.0); MONOCYTES % (AUTO) 3 % (0-12); NEUTROPHILS # (AUTO) 3.1 10^3/uL (1.8-7.8); NEUTROPHILS % (AUTO) 85 % (42-75); PLATELET COUNT 148 10^3/uL (130-400); WHITE BLOOD COUNT 3.6 10^3/uL (4.3-11.0)
--- NOTE | 2021-07-20 06:04 | Short Stay Summary-Hospitalist ---
History of Present Illness HPI/Chief Complaint Chief complaint: Dyspnea with exacerbation of COPD History present illness: This is a 60-year-old white female who continues to smoke and very noncompliant with medication treatments who has not been able to see her primary care provider for a long time and who used to have home oxygen but they took it away who presented to the [place] ER with complaints of dyspnea. Patient was found to be in need of oxygen supplementation and monitoring for exacerbation of COPD. She is adamant about going home so instead of leaving AGAINST MEDICAL ADVICE I will make a safe discharge and discharge on prednisone taper dose at home oxygen. Source: patient, family Exam Limitations: other (Severe presbycusis) Date Seen 07/20/21 Time Seen by a Provider: 09:30 Attending Physician Lauren Garrett DO PCP Self,Johnny FOOTE Referring Physician Date of Admission Jul 19, 2021 at 13:41 Home Medications & Allergies Home Medications Reviewed patient Home Medication Reconciliation performed by pharmacy medication reconciliations biomedical instrument technician and/or nursing. Patients Allergies have been reviewed. Allergies Allergies Coded Allergies gabapentin (Verified Allergy, Unknown, 01/16/20) latex (Verified Allergy, Unknown, 01/16/20) meloxicam (Verified Allergy, Unknown, 10/25/18) pregabalin (Verified Allergy, Unknown, 11/21/18) vancomycin (Verified Allergy, Unknown, 10/25/18) Past Yalvisl-Zduele-Wjetek Hx Patient Social History Marrital Status: Employed/Student: unemployed Tobacco Use?: Yes Tobacco type used: Cigarettes Smoking Status: Current Everyday Smoker Use of E-Cig and/or Vaping dev: No Substance use?: No Alcohol Use?: No Pt feels they are or have been: No Immunizations Up To Date First/Initial COVID19 Vaccinat: OCTOBER 2020 Second COVID19 Vaccination Jake: NOVEMBER 2020 Seasonal Allergies Seasonal Allergies: Yes Current Status status: No status: No Advance Directives: Yes Communicates: Verbally Primary Language: Turkmen Preferred Spoken Language: Turkmen Is interpretation needed?: No Sensory deficits: Hearing impairment Implanted or Applied Medical D: CPAP, Pacemaker, Stents Past Medical History Surgeries: Abdominal, Section, Coronary Stent, Gallbladder, Hysterectomy, Orthopedic, Pacemaker, Thyroidectomy Asthma, Sleep Apnea, COPD, Emphysema Currently Using CPAP: Yes (with oxygen) Coronary Artery Disease, Heart Attack, High Cholesterol, Hypertension, Irregular Heartbeat Neuropathy 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 OF PMO History: Hysterectomy Gastroesophageal Reflux, Chronic Constipation Fibromyalgia, Chronic Back Pain Hypothyroidsim, Diabetes, Non-Insulin dep Cervical What Type of Treatment Did You: Surgical Intervention Depression Blood Disorders: No Review of Systems Constitutional: see HPI, malaise EENTM: no symptoms reported Respiratory: dyspnea on exertion Cardiovascular: no symptoms reported Gastrointestinal: no symptoms reported Genitourinary: no symptoms reported Musculoskeletal: no symptoms reported Skin: no symptoms reported Psychiatric/Neurological: No Symptoms Reported All Other Systems Reviewed Negative Unless Noted: Yes Physical Exam Physical Exam Vital Signs Vital Signs - First Documented 07/19/21 07/19/21 12:40 12:45 Temp 36.7 Pulse 83 Resp 20 B/P (MAP) 162/68 (99) Pulse Ox 82 O2 Delivery Room Air O2 Flow Rate 12.00 Capillary Refill : Less Than 3 Seconds Height, Weight, BMI Height: 5'3.00" Weight: 205lbs. oz. 92.514762ns; 43.11 BMI Method:Stated General Appearance: No Apparent Distress, WD/WN, Anxious, Chronically ill, Obese Eyes: Bilateral Eye Normal Inspection, Bilateral Eye PERRL, Bilateral Eye EOMI HEENT: PERRL/EOMI, Normal ENT Inspection, Pharynx Normal Neck: Full Range of Motion, Normal Inspection, Non Tender, Supple, Carotid Bruit Respiratory: Chest Non Tender, Lungs Clear, No Accessory Muscle Use, No Respiratory Distress, Decreased Breath Sounds Cardiovascular: Regular Rate, Rhythm, No Edema, No Gallop, No JVD, No Murmur, Normal Peripheral Pulses Gastrointestinal: Normal Bowel Sounds, No Organomegaly, No Pulsatile Mass, Non Tender, Soft Back: Normal Inspection, No CVA Tenderness, No Vertebral Tenderness Extremity: Normal Capillary Refill, Normal Inspection, Normal Range of Motion, Non Tender, No Calf Tenderness, No Pedal Edema Neurologic/Psychiatric: Alert, Oriented x3, No Motor/Sensory Deficits, Normal Mood/Affect Skin: Normal Color, Warm/Dry Lymphatic: No Adenopathy Results Results/Procedures Labs Laboratory Tests 07/19/21 12:50 07/20/21 05:45 Patient resulted labs reviewed. Short Stay Diagnosis Discharge Diagnosis-Short Stay Admission Diagnosis Assessment: COPD exacerbation Hypoxemia needing supplemental oxygen at discharge Smoker CAD Obesity Final Discharge Diagnosis Assessment: COPD exacerbation Hypoxemia needing supplemental oxygen at discharge Smoker CAD Obesity Conclusion Plan Discharge home Diagnosis/Problems Diagnosis/Problems (1) Acute and chronic respiratory failure with hypoxia Status: Acute (2) COPD with exacerbation Status: Acute (3) Congestive heart failure Status: Acute LAUREN GARRETT DO Jul 20, 2021 06:04
[2021-07-20] MEDS: FUROSEMIDE 40 MG/4 ML INJ (LASIX) IVP SCH (06:11)
[2021-07-20 06:16] LABS: ALBUMIN 3.7 GM/DL (3.2-4.5); POTASSIUM 4.1 MMOL/L (3.6-5.0)
[2021-07-20 06:18] LABS: CALCIUM 8.6 MG/DL (8.5-10.1)
[2021-07-20 06:19] LABS: TOTAL PROTEIN 6.7 GM/DL (6.4-8.2)
[2021-07-20 06:21] LABS: BILIRUBIN,TOTAL 0.3 MG/DL (0.1-1.0)
[2021-07-20 06:22] LABS: CREATININE SERUM 0.77 MG/DL (0.60-1.30)
[2021-07-20] MEDS ORDERED: LEVOTHYROXINE 25 MCG (LEVOTHROID) TAB PO SCH (06:30)
[2021-07-20] MEDS ORDERED: LEVOTHYROXINE 100 MCG (LEVOTHROID) TAB PO SCH (06:30)
[2021-07-20] MEDS ORDERED: inSUlin ASPART (NovoLOG) 1 UNIT/0.01 ML (CHARGE PER UNIT) SC ONE (06:45)
[2021-07-20] MEDS ORDERED: PANTOPRAZOLE 40 MG (PROTONIX) TAB PO SCH (07:00)
[2021-07-20 08:00] VITALS: BP 151/75
[2021-07-20] MEDS ORDERED: metFORMIN 850 MG (GLUCOPHAGE) TAB PO SCH (08:00)
[2021-07-20] MEDS: HYDROcodone/APAP 5 MG/325 MG (LORTAB) TAB PO PRN (08:53)
[2021-07-20] MEDS ORDERED: NICOTINE PATCH REMOVAL TP SCH (08:59)
[2021-07-20] MEDS ORDERED: NICOTINE 21 MG (NICODERM) PATCH TD SCH (09:00)
[2021-07-20] MEDS ORDERED: lisINopril 40 MG (PRINIVIL) TABLET PO SCH (09:00)
[2021-07-20] MEDS ORDERED: FUROSEMIDE 20 MG (LASIX) TAB PO SCH (09:00)
[2021-07-20] MEDS ORDERED: CLOPIDOGREL 75 MG (PLAVIX) TABLET PO SCH (09:00)
[2021-07-20] MEDS ORDERED: PREGABALIN 75 MG (LYRICA) CAP PO SCH (09:00)
[2021-07-20] MEDS ORDERED: amLODIPine 5 MG (NORVASC) TAB PO SCH (09:00)
[2021-07-20] MEDS ORDERED: NON-FORMULARY MEDICATION 1 EA EA (Fluticasone/Salmeterol (Advair 250-50 Diskus) 1 EACH) IH SCH (09:00)
[2021-07-20] MEDS ORDERED: PRED10TA22 PO (09:38)
--- NOTE | 2021-07-20 10:34 | Cardiology Progress Note ---
Progress Note-Cardiology Events since last exam Date Seen by Provider: Jul 20, 2021 Time Seen by Provider: 10:32 Events since last exam I received a request for consultation last evening from the primary hospital provider. However, overnight, the patient wanted to leave AGAINST MEDICAL ADVICE. This morning preparations are being made for discharge on home oxygen. The patient has a reported history of heart failure but had a normal BNP level in the emergency room. In light of the fact that the patient is being discharged, we would be happy to see her in our office after discharge. I will not perform a formal consultation since the patient is being discharged. Vitals Last set of Vitals Signs Vital Signs 07/20/21 07/20/21 06:56 08:00 Temp 36.1 Pulse 80 Resp 20 B/P (MAP) 151/75 (100) Pulse Ox 96 O2 Delivery High Flow N/C O2 Flow Rate 5.00 Labs Labs Laboratory Tests 07/19/21 12:50 07/20/21 05:45 Exam Vital Signs Vital Signs Date Time Temp Pulse Resp B/P (MAP) Pulse Ox O2 Delivery O2 Flow Rate FiO2 07/20/21 08:00 36.1 80 20 151/75 (100) 96 High Flow N/C 07/20/21 06:56 5.00 Labs Laboratory Tests Test 07/19/21 12:50 07/19/21 18:03 07/19/21 20:09 07/20/21 05:45 Range/Units White Blood Count 4.4 3.6 L 4.3-11.0 10^3/uL Red Blood Count 4.27 4.46 3.80-5.11 10^6/uL Hemoglobin 11.8 12.2 11.5-16.0 g/dL Hematocrit 36 38 35-52 % Mean Corpuscular Volume 85 85 80-99 fL Mean Corpuscular Hemoglobin 28 27 25-34 pg Mean Corpuscular Hemoglobin Concent 32 32 32-36 g/dL Red Cell Distribution Width 16.5 H 15.8 H 10.0-14.5 % Platelet Count 154 148 130-400 10^3/uL Mean Platelet Volume 11.1 10.9 9.0-12.2 fL Immature Granulocyte % (Auto) 1 3 % Neutrophils (%) (Auto) 70 85 H 42-75 % Lymphocytes (%) (Auto) 22 10 L 12-44 % Monocytes (%) (Auto) 6 3 0-12 % Eosinophils (%) (Auto) 1 0 0-10 % Basophils (%) (Auto) 1 0 0-10 % Neutrophils # (Auto) 3.1 3.1 1.8-7.8 10^3/uL Lymphocytes # (Auto) 1.0 0.4 L 1.0-4.0 10^3/uL Monocytes # (Auto) 0.2 0.1 0.0-1.0 10^3/uL Eosinophils # (Auto) 0.1 0.0 0.0-0.3 10^3/uL Basophils # (Auto) 0.0 0.0 0.0-0.1 10^3/uL Immature Granulocyte # (Auto) 0.0 0.1 0.0-0.1 10^3/uL Sodium Level 139 134 L 135-145 MMOL/L Potassium Level 3.5 L 4.1 3.6-5.0 MMOL/L Chloride Level 100 95 L 98-107 MMOL/L Carbon Dioxide Level 29 27 21-32 MMOL/L Anion Gap 10 12 5-14 MMOL/L Blood Urea Nitrogen 6 L 12 7-18 MG/DL Creatinine 0.65 0.77 0.60-1.30 MG/DL Estimat Glomerular Filtration Rate 93 77 BUN/Creatinine Ratio 9 16 Glucose Level 264 H 354 H 70-105 MG/DL Calcium Level 8.6 8.6 8.5-10.1 MG/DL Corrected Calcium 8.9 8.8 8.5-10.1 MG/DL Total Bilirubin 0.2 0.3 0.1-1.0 MG/DL Aspartate Amino Transf (AST/SGOT) 21 24 5-34 U/L Alanine Aminotransferase (ALT/SGPT) 15 17 0-55 U/L Alkaline Phosphatase 107 92 40-136 U/L Troponin I < 0.30 < 0.028 <0.028 NG/ML Pro-B-Type Natriuretic Peptide 124.9 H <75.0 PG/ML Total Protein 6.7 6.7 6.4-8.2 GM/DL Albumin 3.6 3.7 3.2-4.5 GM/DL Lactic Acid Level 2.51 *H 1.74 0.50-2.00 MMOL/L B-Type Natriuretic Peptide 27.9 <100.0 PG/ML Procalcitonin 0.02 <0.10 NG/ML KAIDEN ALVA JR, MD Jul 20, 2021 10:34
[2021-07-20] MEDS ORDERED: ZOLPIDEM 5 MG (AMBIEN) TAB PO SCH (21:00)
== END 2021-07-20 12:48 | disposition home or self-care (01) | DRG 189 ==
LOC: EDUNIT# 12:38 → ER FS 12:39 → CSD 13:41
PROVIDERS: ADMIT Internal Medicine; ATTEND Internal Medicine
DX: J96.21 Acute and chronic respiratory failure with hypoxia (principal); J44.1 Chronic obstructive pulmonary disease with (acute) exacerbation; Z68.41 Body mass index [BMI] 40.0-44.9, adult; F17.210 Nicotine dependence, cigarettes, uncomplicated; I25.10 Atherosclerotic heart disease of native coronary artery without angina pectoris; E66.9 Obesity, unspecified; I50.9 Heart failure, unspecified; Z95.5 Presence of coronary angioplasty implant and graft; Z95.0 Presence of cardiac pacemaker; E89.0 Postprocedural hypothyroidism; I25.2 Old myocardial infarction; E78.00 Pure hypercholesterolemia, unspecified; I11.0 Hypertensive heart disease with heart failure; E11.40 Type 2 diabetes mellitus with diabetic neuropathy, unspecified; K21.9 Gastro-esophageal reflux disease without esophagitis; M79.7 Fibromyalgia; G89.29 Other chronic pain; M54.9 Dorsalgia, unspecified; F32.A Depression, unspecified; Z88.1 Allergy status to other antibiotic agents; Z91.040 Latex allergy status; Z91.19 Patient's noncompliance with other medical treatment and regimen
CPT/HCPCS: 36415; 71045; 80053; 83605; 83880; 84145; 84484; 85025; 93005; 94640; 94760; 94761

== ENCOUNTER 2022-06-03 13:34 | Emergency (ER) | payer MEDICARE ==
[~2022-06-03] VITALS: Ht 160 cm; Wt 102.2 kg
[~2022-06-03 13:34] MED LIST changes: +PRED10TA22 PO
[2022-06-03 13:57] LABS: BASOPHILS # (AUTO) 0.1 10^3/uL (0.0-0.1); BASOPHILS % (AUTO) 1 % (0-10); EOSINOPHILS # (AUTO) 0.5 10^3/uL (0.0-0.3); EOSINOPHILS % (AUTO) 5 % (0-10); HEMATOCRIT 35 % (35-52); HEMOGLOBIN 11.7 g/dL (11.5-16.0); LYMPHOCYTES # (AUTO) 1.8 10^3/uL (1.0-4.0); LYMPHOCYTES % (AUTO) 19 % (12-44); MEAN CORPUSCULAR HEMOGLOBIN 27 pg (25-34); MEAN CORPUSCULAR HGB CONC 33 g/dL (32-36); MEAN CORPUSCULAR VOLUME 82 fL (80-99); MEAN PLATELET VOLUME 10.2 fL (9.0-12.2); MONOCYTES # (AUTO) 0.4 10^3/uL (0.0-1.0); MONOCYTES % (AUTO) 4 % (0-12); NEUTROPHILS % (AUTO) 71 % (42-75); PLATELET COUNT 318 10^3/uL (130-400); WHITE BLOOD COUNT 9.8 10^3/uL (4.3-11.0)
[2022-06-03 13:59] LABS: BILIRUBIN,URINE NEGATIVE (NEGATIVE); CLARITY,URINE CLOUDY; COLOR,URINE YELLOW; GLUCOSE, URINE (UA) NEGATIVE (NEGATIVE); KETONES,URINE NEGATIVE (NEGATIVE); LEUKOCYTE ESTERASE ,URINE 1+ (NEGATIVE); NITRITE,URINE POSITIVE (NEGATIVE); PH,URINE 5.5 (5-9); PROTEIN,URINE NEGATIVE (NEGATIVE)
[2022-06-03 14:06] LABS: BACTERIA,URINE MODERATE /HPF; SQUAMOUS EPITHELIAL CELL,UR 0-2 /HPF
--- NOTE | 2022-06-03 14:07 | ED Abdominal Pain ---
General Chief Complaint: Abdominal/GI Problems Stated Complaint: LRQ PAIN Nursing Triage Note: Patient states she has had right lower quadrant abdominal pain for 1 week. She states the pain is worse with pulling and walking. History of Present Illness Date Seen by Provider: Jun 03, 2022 Time Seen by Provider: 15:50 Initial Comments 61-year-old female presents with right lower quadrant pain. She reports that the pains been there for about 1 week. It gets worse with walking or if she is pulling. Pain is located along the hip. She denies any nausea, vomiting, fever, chills. She denies any urinary symptoms. Patient reports that she saw her primary care provider couple days ago but "they did not do x-rays" patient reports she had a normal bowel movement this morning. Allergies and Home Medications Allergies Coded Allergies: gabapentin (Verified Allergy, Unknown, 01/16/20) latex (Verified Allergy, Unknown, 01/16/20) meloxicam (Verified Allergy, Unknown, 10/25/18) morphine (Verified Allergy, Unknown, 06/03/22) pregabalin (Verified Allergy, Unknown, 11/21/18) vancomycin (Verified Allergy, Unknown, 10/25/18) Patient Home Medication List Home Medication List Reviewed: Yes Amlodipine Besylate (Amlodipine Besylate) 5 Mg Tablet, 5 MG PO DAILY, (Reported) Entered as Reported by: DOREEN SOUZA on 01/12/20 1105 Atorvastatin Calcium (Atorvastatin Calcium) 80 Mg Tablet, 80 MG PO HS, (Reported) Entered as Reported by: DOREEN SOUZA on 01/12/20 1105 Cephalexin (Cephalexin) 500 Mg Tablet, 500 MG PO QID Prescribed by: SHAHZAD JUNIOR on 06/03/22 1448 Clopidogrel Bisulfate (Clopidogrel) 75 Mg Tablet, 75 MG PO DAILY, (Reported) Entered as Reported by: DOREEN SOUZA on 01/12/20 1105 Fluticasone/Salmeterol (Advair 250-50 Diskus) 1 Each Blst.w.dev, 1 EACH IH BID, (Reported) Entered as Reported by: DOREEN SOUZA on 01/12/20 1105 Furosemide (Furosemide) 20 Mg Tablet, 20 MG PO DAILY, (Reported) Entered as Reported by: DOREEN SOUZA on 01/12/20 1152 Levothyroxine Sodium (Levothyroxine Sodium) 25 Mcg Tablet, 25 MCG PO DAILY, (Reported) Entered as Reported by: DOREEN SOUZA on 01/12/20 1105 Levothyroxine Sodium (Levothyroxine Sodium) 200 Mcg Tablet, 200 MCG PO DAILY, (Reported) Entered as Reported by: DOREEN SOUZA on 01/12/20 1105 Lisinopril (Lisinopril) 40 Mg Tablet, 40 MG PO DAILY, (Reported) Entered as Reported by: DOREEN SOUZA on 01/12/20 1105 Metformin HCl (Metformin HCl) 850 Mg Tablet, 850 MG PO BID WITH MEALS, (Reported) Entered as Reported by: DOREEN SOUZA on 01/12/20 1105 Pantoprazole Sodium (Pantoprazole Sodium) 40 Mg Tablet.dr, 40 MG PO DAILY, (Reported) Entered as Reported by: DOREEN SOUZA on 01/12/20 1105 Prednisone (Prednisone) 10 Mg Tab.ds.pk, 10 MG PO DAILY Prescribed by: YOJANA CORTEZ on 07/20/21 0938 Pregabalin (Lyrica) 75 Mg Capsule, 75 MG PO BID, (Reported) Entered as Reported by: DOREEN SOUZA on 01/12/20 1105 Zolpidem Tartrate (Ambien) 10 Mg Tablet, 10 MG PO HS, (Reported) Entered as Reported by: DOREEN SOUZA on 01/12/20 1152 Review of Systems Review of Systems Constitutional: no symptoms reported EENTM: No Symptoms Reported Respiratory: No Symptoms Reported Cardiovascular: No Symptoms Reported Gastrointestinal: See HPI Genitourinary: No Symptoms Reported Musculoskeletal: see HPI Skin: no symptoms reported Psychiatric/Neurological: No Symptoms Reported Endocrine: No Symptoms Reported Hematologic/Lymphatic: No Symptoms Reported Past Enxglxm-Qgcyla-Vvrwva Hx Patient Social History Tobacco Use?: Yes Tobacco type used: Cigarettes Smoking Status: Current Everyday Smoker Substance use?: No Alcohol Use?: No Pt feels they are or have been: No Immunizations Up To Date First/Initial COVID19 Vaccinat: OCTOBER 2020 Second COVID19 Vaccination Jake: NOVEMBER 2020 Third COVID19 Vaccination Date: OCTOBER 2020 Seasonal Allergies Seasonal Allergies: Yes Past Medical History Surgery/Hospitalization HX: COPD Surgeries: Yes (back sx) Abdominal, Section, Coronary Stent, Gallbladder, Hysterectomy, Orthopedic, Pacemaker, Thyroidectomy Respiratory: Yes (Nocturnal hypoxia) Asthma, Sleep Apnea, COPD, Emphysema Currently Using CPAP: Yes (with oxygen) Cardiac: Yes (meditronic pacemaker, ) Coronary Artery Disease, Heart Attack, High Cholesterol, Hypertension, Irregular Heartbeat Neurological: No Neuropathy Reproductive Disorders: No 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 History: Hysterectomy Genitourinary: No Gastrointestinal: Yes Gastroesophageal Reflux, Chronic Constipation Musculoskeletal: Yes (spinal stimulator) Fibromyalgia, Chronic Back Pain Endocrine: Yes Hypothyroidsim, Diabetes, Non-Insulin dep HEENT: No Cancer: Yes Cervical What Type of Treatment Did You: Surgical Intervention Psychosocial: Yes Depression Integumentary: Yes (sore on lower abd) Blood Disorders: No Physical Exam Vital Signs Vital Signs - First Documented 06/03/22 13:38 Temp 36.0 Pulse 86 Resp 18 B/P (MAP) 147/63 (91) Pulse Ox 93 O2 Delivery Room Air Capillary Refill : Less Than 3 Seconds Height/Weight/BMI Height: 5'3.00" Weight: 205lbs. oz. 92.321911nr; 39.00 BMI Method:Stated General Appearance: WD/WN, no apparent distress, other (Appears much older than stated age) HEENT: PERRL/EOMI Neck: full range of motion, supple Respiratory: lungs clear, normal breath sounds Cardiovascular: normal peripheral pulses, regular rate, rhythm Gastrointestinal: soft, tenderness (Right lower quadrant/right groin. Minimal) Extremities: normal range of motion, non-tender Neurologic/Psychiatric: alert, oriented x 3 Skin: normal color, warm/dry Focused Exam Lactate Level 06/03/22 13:57: Lactic Acid Level 1.50 Lactic Acid Level Laboratory Tests Test 06/03/22 13:57 Lactic Acid Level 1.50 MMOL/L (0.50-2.00) Progress/Results/Core Measures Results/Orders Lab Results Laboratory Tests Test 06/03/22 13:38 06/03/22 13:50 06/03/22 13:57 Range/Units Urine Color YELLOW Urine Clarity CLOUDY Urine pH 5.5 5-9 Urine Specific [place] 1.020 1.016-1.022 Urine Protein NEGATIVE NEGATIVE Urine Glucose (UA) NEGATIVE NEGATIVE Urine Ketones NEGATIVE NEGATIVE Urine Nitrite POSITIVE H NEGATIVE Urine Bilirubin NEGATIVE NEGATIVE Urine Urobilinogen 0.2 < = 1.0 MG/DL Urine Leukocyte Esterase 1+ H NEGATIVE Urine RBC (Auto) NEGATIVE NEGATIVE Urine RBC NONE /HPF Urine WBC 10-25 H /HPF Urine Squamous Epithelial Cells 0-2 /HPF Urine Crystals NONE /LPF Urine Bacteria MODERATE H /HPF Urine Casts NONE /LPF Urine Mucus NEGATIVE /LPF Urine Culture Indicated YES White Blood Count 9.8 4.3-11.0 10^3/uL Red Blood Count 4.29 3.80-5.11 10^6/uL Hemoglobin 11.7 11.5-16.0 g/dL Hematocrit 35 35-52 % Mean Corpuscular Volume 82 80-99 fL Mean Corpuscular Hemoglobin 27 25-34 pg Mean Corpuscular Hemoglobin Concent 33 32-36 g/dL Red Cell Distribution Width 17.8 H 10.0-14.5 % Platelet Count 318 130-400 10^3/uL Mean Platelet Volume 10.2 9.0-12.2 fL Immature Granulocyte % (Auto) 0 % Neutrophils (%) (Auto) 71 42-75 % Lymphocytes (%) (Auto) 19 12-44 % Monocytes (%) (Auto) 4 0-12 % Eosinophils (%) (Auto) 5 0-10 % Basophils (%) (Auto) 1 0-10 % Neutrophils # (Auto) 7.0 1.8-7.8 10^3/uL Lymphocytes # (Auto) 1.8 1.0-4.0 10^3/uL Monocytes # (Auto) 0.4 0.0-1.0 10^3/uL Eosinophils # (Auto) 0.5 H 0.0-0.3 10^3/uL Basophils # (Auto) 0.1 0.0-0.1 10^3/uL Immature Granulocyte # (Auto) 0.0 0.0-0.1 10^3/uL Sodium Level 133 L 135-145 MMOL/L Potassium Level 4.5 3.6-5.0 MMOL/L Chloride Level 91 L 98-107 MMOL/L Carbon Dioxide Level 31 21-32 MMOL/L Anion Gap 11 5-14 MMOL/L Blood Urea Nitrogen 12 7-18 MG/DL Creatinine 0.72 0.60-1.30 MG/DL Estimat Glomerular Filtration Rate 96 BUN/Creatinine Ratio 17 Glucose Level 218 H 70-105 MG/DL Calcium Level 9.4 8.5-10.1 MG/DL Corrected Calcium 9.6 8.5-10.1 MG/DL Magnesium Level 1.2 L 1.6-2.4 MG/DL Total Bilirubin 0.4 0.1-1.0 MG/DL Aspartate Amino Transf (AST/SGOT) 17 5-34 U/L Alanine Aminotransferase (ALT/SGPT) 13 0-55 U/L Alkaline Phosphatase 99 40-136 U/L C-Reactive Protein 0.42 <0.50 MG/DL Total Protein 6.3 L 6.4-8.2 GM/DL Albumin 3.7 3.2-4.5 GM/DL Lactic Acid Level 1.50 0.50-2.00 MMOL/L My Orders Orders - JUNIOR,SHAHZAD L DO Cbc With Automated Diff (06/03/22 13:49) Comprehensive Metabolic Panel (06/03/22 13:49) Lactic Acid Analyzer (06/03/22 13:49) Magnesium (06/03/22 13:49) Ua Culture If Indicated (06/03/22 13:49) Crp Fs (06/03/22 13:49) Urine Culture (06/03/22 13:38) Abdomen Flat & Upright/Decub (06/03/22 14:21) Vital Signs/I&O 06/03/22 13:38 Temp 36.0 Pulse 86 Resp 18 B/P (MAP) 147/63 (91) Pulse Ox 93 O2 Delivery Room Air Blood Pressure Mean: 91 Progress Progress Note : Progress Note Patient's symptoms are likely a result of a urinary tract infection. Patient restarted on Keflex. She should follow with her primary care provider in 1 week for recheck of her urine and symptoms. Patient stable and discharged home Diagnostic Imaging Diagonstic Imaging: Xray Plain Films/CT/US/NM/MRI: abdomen Comments Date of Exam:06/03/22 ABDOMEN FLAT & UPRIGHT/DECUB HISTORY: Abdominal pain and cramping. COMPARISON: 06/01/2021. TECHNIQUE: Supine and upright frontal views of the abdomen. FINDINGS: No distended loops of bowel are seen. There is moderate stool in the colon. No large collection of free air is seen. Cholecystectomy clips are present. Spinal cord stimulator is noted. There is mild cardiomegaly, and pacemaker leads are partially seen. IMPRESSION: 1. Moderate stool in the colon. No findings of small bowel obstruction or large collection of free air. Reviewed: Reviewed by Me, Reviewed/Discussed Departure Impression Primary Impression: Acute cystitis without hematuria Disposition: 01 HOME, SELF-CARE Condition: Stable Departure-Patient Inst. Referrals: BRITTA SUAREZ MD (PCP) Primary Care Physician Patient Instructions: Urinary Tract Infections in Adults Add. Discharge Instructions: Follow-up with your primary care provider for a recheck of your urine and symptoms in 1 week Tylenol, ibuprofen as needed for pain You may also try Azo or similar medication as needed for pain All discharge instructions reviewed with patient and/or family. Voiced understanding. Scripts Cephalexin (Cephalexin) 500 Mg Tablet 500 MG PO QID, #20 TAB 0 Refills Prov: SHAHZAD JUNIOR DO 06/03/22 SHAHZAD JUNIOR DO Jun 03, 2022 14:07
[2022-06-03 14:20] LABS: POTASSIUM 4.5 MMOL/L (3.6-5.0)
[2022-06-03 14:21] LABS: ALBUMIN 3.7 GM/DL (3.2-4.5); BILIRUBIN,TOTAL 0.4 MG/DL (0.1-1.0); CALCIUM 9.4 MG/DL (8.5-10.1); CREATININE SERUM 0.72 MG/DL (0.60-1.30); MAGNESIUM 1.2 MG/DL (1.6-2.4); TOTAL PROTEIN 6.3 GM/DL (6.4-8.2)
[2022-06-03] MEDS ORDERED: CEPH500T PO (14:48)
--- NOTE | 2022-06-03 14:54 | Diagnostic Imaging Report ---
HISTORY: Abdominal pain and cramping. COMPARISON: 06/01/2021. TECHNIQUE: Supine and upright frontal views of the abdomen. FINDINGS: No distended loops of bowel are seen. There is moderate stool in the colon. No large collection of free air is seen. Cholecystectomy clips are present. Spinal cord stimulator is noted. There is mild cardiomegaly, and pacemaker leads are partially seen. IMPRESSION: 1. Moderate stool in the colon. No findings of small bowel obstruction or large collection of free air. Dictated by: Dictated on workstation # [id number]
[2022-06-03 15:02] VITALS: BP 110/64
== END 2022-06-03 15:03 | disposition home or self-care (01) ==
LOC: EDUNIT# 13:34 → ER FS 13:36
DX: N30.00 Acute cystitis without hematuria (principal); G47.30 Sleep apnea, unspecified; F17.210 Nicotine dependence, cigarettes, uncomplicated; Z91.040 Latex allergy status; Z88.1 Allergy status to other antibiotic agents; Z99.89 Dependence on other enabling machines and devices
CPT/HCPCS: 36415; 74019; 80053; 81000; 83605; 83735; 85025; 86141; 87077; 87088

== ENCOUNTER → 2022-06-13 | Outpatient (CLI) | payer MEDICARE ==
[~2022-06-13] MED LIST changes: +CATHETER FLUSH 10 ML SYR IV PRN; +CEPH500T PO; +HOLD METFORMIN - RECEIVED CONTRAST 20 ML VIAL IV SCH; +IOHEXOL 350 MG/ML 100 ML (OMNIPAQUE 350) VIAL IV ONE; +NS 100 ML (IVPB) BAG IV ONE
[2022-06-13 14:15] LABS: POTASSIUM 3.7 MMOL/L (3.6-5.0)
[2022-06-13 14:16] LABS: BILIRUBIN,TOTAL 0.3 MG/DL (0.1-1.0); CALCIUM 9.5 MG/DL (8.5-10.1); CREATININE SERUM 0.74 MG/DL (0.60-1.30); TOTAL PROTEIN 6.8 GM/DL (6.4-8.2)
--- NOTE | 2022-06-13 14:55 | Diagnostic Imaging Report ---
PROCEDURE: CT abdomen and pelvis with contrast. TECHNIQUE: Multiple contiguous axial images were obtained through the abdomen and pelvis after administration of intravenous contrast. Auto Exposure Controls were utilized during the CT exam to meet ALARA standards for radiation dose reduction. All CT scans use one or more of the following dose optimizing techniques: automated exposure control, MA and/or KvP adjustment based on patient size and exam type or iterative reconstruction. INDICATION: Right lower quadrant pain for 2 weeks. CORRELATION is made with prior CT from 06/01/2021. The lung bases are clear. The patient appears to have a long right lobe of the liver measuring up to 24 cm. No liver mass is identified. Gallbladder is surgically absent. There is no biliary ductal dilatation. Pancreas and spleen are unremarkable. No adrenal mass is detected. Kidneys are unremarkable. Aorta is calcified but nonaneurysmal. There are postoperative changes from gastric bypass surgery. Bowel loops are normal caliber. There is no obstruction. No free fluid or fluid collection is seen. Bladder is unremarkable. Uterus appears to be surgically absent. No inflammatory changes are seen. IMPRESSION: Essentially unremarkable CT of the abdomen and pelvis. No acute feature is identified. Dictated by: Dictated on workstation # [id number]
== END ==
LOC: RAD FS 13:35
PROVIDERS: ATTEND Family Medicine
DX: I10 Essential (primary) hypertension (principal); R10.31 Right lower quadrant pain
CPT/HCPCS: 36415; 74177; 80053; Q9967